=== PATIENT | female | born 1930 | race Caucasian/White ===

== ENCOUNTER → 2016-11-12 | Outpatient (CLI) | payer OTHER | LOC: FIMAGING 12:48 | PROVIDERS: ATTEND Physician Assistant | DX: M25.552 Pain in left hip (principal); M24.152 Other articular cartilage disorders, left hip; M24.852 Other specific joint derangements of left hip, not elsewhere classified; M16.12 Unilateral primary osteoarthritis, left hip ==

== ENCOUNTER → 2016-12-09 | Outpatient (CLI) | payer OTHER ==
[~2016-12-09] MED LIST: DEPO METHYLPREDNISOLONE 40 MG/ML SDV ONE; IOPAMIDOL (ISOVUE-300) 50 ML VIAL IV ONE; LIDOCAINE 1% 30 ML SDV ONE; NA BICARBONATE 50 MEQ/50 ML VIAL ONE; ROPIVACAINE HCL 150 MG/30 ML INJ ONE
== END ==
LOC: FIMAGING 13:00
PROVIDERS: ATTEND Orthopaedic Surgery
PROC: 3E0U3BZ Introduction of Anesthetic Agent into Joints, Percutaneous Approach (ICD-10-PCS; principal; 2016-12-09)
PROC: 3E0U33Z Introduction of Anti-inflammatory into Joints, Percutaneous Approach (ICD-10-PCS; principal; 2016-12-09)
DX: M16.12 Unilateral primary osteoarthritis, left hip (principal); M25.552 Pain in left hip
CPT/HCPCS: 20610; J1030; J2795; Q9967

== ENCOUNTER → 2017-01-22 | Outpatient (CLI) | payer OTHER | LOC: CIMAGING 15:06 | PROVIDERS: ATTEND Internal Medicine | DX: M79.604 Pain in right leg (principal) | CPT/HCPCS: 93971-PO ==

== ENCOUNTER → 2017-02-11 | Outpatient (CLI) | payer OTHER | LOC: BHFA 09:30 | PROVIDERS: ATTEND Internal Medicine Cardiovascular Disease | DX: Z01.818 Encounter for other preprocedural examination (principal) | CPT/HCPCS: 78452; 93017; A9500; J2785 ==

== ENCOUNTER 2017-02-23 13:42 | Emergency (ER) | payer OTHER ==
[2017-02-23 14:00] VITALS: TEMP 98
--- NOTE | 2017-02-23 14:10 | EDPHY ---
H & P Stated Complaint: sent from [place] for DVT treatment Time Seen by Provider: 02/23/17 13:49 HPI/ROS: Chief Complaint: DVT HPI: 86-year-old woman who is been having bilateral leg swelling for the past month secondary to diagnosis of phlebitis. Patient states she thinks that this is secondary to increasing hip arthritis. She was actually scheduled for a hip replacement tomorrow. Patient was sent for ultrasound of her bilateral lower extremities by her primary care physician, Dr. Daley. Ultrasounds today showed a DVT in the femoral vein of her left leg. She was sent here to check her CBC and PTT and initiate anticoagulation. She has a recent history of anemia likely secondary to increased ibuprofen use. Denies any chest pain or shortness of breath. No cough. No other complaints at this time. ROS: 10 point Review of Systems is negative except as noted in the HPI. PMH: Hypertension, anemia, osteoarthritis Medications: Hypertensive medication Allergies: No known drug allergies Social History: Remote smoking, occasional alcohol, no recreational drug use Family History: non-contributory Physical Exam: Gen: Awake, Alert, No Distress HEENT: Nose: no rhinorrhea Eyes: PERRLA, EOMI Mouth: Moist mucosa Neck: Supple, no JVD Chest: nontender, lungs clear to auscultation Heart: S1, S2 normal, no murmur Abd: Soft, non-tender, no guarding Back: no CVA tenderness, no midline tenderness Ext: Bilateral calf edema right greater than left, mild tenderness, mild erythema, non-tender Skin: no rash Neuro: CN II-XII intact, Sensation grossly intact, Strength 5/5 in bilateral upper and lower extremities - Personal History Current Tetanus Diphtheria and Acellular Pertussis (TDAP): Yes - Medical/Surgical History Hx Asthma: No Hx Chronic Respiratory Disease: No Hx Diabetes: No Hx Cardiac Disease: No Hx Renal Disease: No Hx Cirrhosis: No Hx Alcoholism: No Hx HIV/AIDS: No Hx Splenectomy or Spleen Trauma: No Other PMH: htn. basal cell ca. gallbladder , appy , tonsils - Social History Smoking Status: Never smoked Constitutional: Initial Vital Signs Temperature (C) 36.6 C 02/23/17 13:57 Heart Rate 68 02/23/17 13:57 Respiratory Rate 18 02/23/17 13:57 O2 Sat (%) 97 06/27/17 13:57 O2 Delivery Mode Room Air Allergies/Adverse Reactions: No Known Allergies Allergy (Unverified 04/20/14 23:20) Home Medications: Medication Instructions Recorded Diazoxide 04/20/14 Acyclovir 02/23/17 Enoxaparin [Lovenox 60 MG (*)] 70 mg SQ 1000,2200 #10 syr 02/23/17 Evista 02/23/17 Lisinopril 02/23/17 Warfarin Sodium [Coumadin 5MG (*)] 5 mg PO DAILY16 #30 tab 02/23/17 Departure - Departure Disposition: Home, Routine, Self-Care Clinical Impression: DVT (deep venous thrombosis) Condition: Good Instructions: Deep Venous Thrombosis (ED) Additional Instructions: Follow up with Dr. Daley tomorrow. Return emergency depart for any increasing pain, chest pain, shortness of breath , or any other concerns. Referrals: Maria Guadalupe Daley MD [Primary Care Provider] - As per Instructions Prescriptions: Enoxaparin [Lovenox 60 MG (*)] 70 mg SQ 1000,2200 #10 syr Warfarin Sodium [Coumadin 5MG (*)] 5 mg PO DAILY16 #30 tab
[2017-02-23 14:24] LABS: % IMMATURE GRANULYOCYTES 0.2 % (0.0-1.1); ABSOLUTE IMMATURE GRANULOCYTES 0.01 10^3/uL (0.00-0.10); ADD DIFF? NO; ADD MORPH? NO; ADD SCAN? NO; ATYPICAL LYMPHOCYTE FLAG 10 (0-99); FRAGMENT RBC FLAG 0 (0-99); HEMATOCRIT 31.6 % (38.0-47.0); HEMOGLOBIN 10.7 g/dL (12.6-16.3); LEFT SHIFT FLG 0 (0-99); LIPEMIA HEMOLYSIS FLAG 90 (0-99); MEAN CELL HEMOGLOBIN CONCENTR. 33.9 g/dL (32.4-36.7); MEAN CELL VOLUME 94.6 fL (81.5-99.8); PLATELET CLUMPS FLAG 0 (0-99); PLATELET COUNT 203 10^3/uL (150-400); RED BLOOD CELL COUNT 3.34 10^6/uL (4.18-5.33); RED CELL DISTRIBUTION WIDTH 13.2 % (11.5-15.2)
[2017-02-23 14:35] LABS: APTT 23.8 SEC (23.0-38.0); INR 1.04 (0.83-1.16); PROTIME(PATIENT) 13.3 SEC (12.0-15.0)
[2017-02-23] MEDS ORDERED: WARFARIN SODIUM 5 MG TAB PO ONE (14:41)
[2017-02-23] MEDS ORDERED: ENOXAPARIN 80 MG/0.8 ML SYR SC ONE (14:41)
[2017-02-23 15:28] VITALS: BP 132/70; PULSE 74; RESP 16
[2017-02-23 15:29] VITALS: O2SAT 98
== END 2017-02-23 15:28 | disposition home or self-care (01) ==
LOC: CED 13:42
DX: I82.412 Acute embolism and thrombosis of left femoral vein (principal); I10 Essential (primary) hypertension; Z79.01 Long term (current) use of anticoagulants; Z85.828 Personal history of other malignant neoplasm of skin
CPT/HCPCS: 93970; 99284; J1650; 85025-PO; 85610-PO; 85730-PO

== ENCOUNTER → 2017-02-23 | Outpatient (CLI) | payer OTHER | LOC: CIMAGING 12:31 | PROVIDERS: ATTEND Internal Medicine | DX: I82.4Z2 Acute embolism and thrombosis of unspecified deep veins of left distal lower extremity (principal) | CPT/HCPCS: 93970-PO ==

== ENCOUNTER 2017-03-13 08:42 | Inpatient (IN) | payer OTHER ==
[2017-03-13] MEDS ORDERED: NS 500 ML IV ONE (09:13)
--- NOTE | 2017-03-13 09:13 | EDPHY ---
H & P Time Seen by Provider: 03/13/17 08:56 HPI/ROS: HPI Right lower abdominal pain, right lower extremity swelling, shortness of breath , history of DVT. 86-year-old female by private vehicle with her . Patient has a left lower extremity DVT. She is currently on Coumadin for this. Labs INR of 3.6, yesterday March 12. She complains of intermittent pain in the right lower quadrant ongoing for 2-3 days, worse this morning. She also describes having shortness of breath starting this morning. She describes having chronic right lower extremity swelling ongoing for a month or 2. She thinks that this is getting worse. Her DVT was diagnosed in her left lower extremity. She has had 2 Doppler ultrasounds of the right lower extremity which have been negative. No fever. Denies chest pain. No cough. ROS: Constitutional: No fever, no chills. No weakness. Eyes: No discharge. No changes in vision. ENT: No sore throat. No nasal congestion or rhinorrhea. Respiratory: No cough. As above. Cardiac: No chest pain, no palpitations. Gastrointestinal: As above, no vomiting, no diarrhea. Genitourinary: No hematuria. No dysuria or increased frequency with urination. Musculoskeletal: No back pain. No neck pain. As above. Skin: No rashes. Neurological: No headache. No focal weakness or altered sensation. Past medical history: As above, basal cell carcinoma. Appendectomy and cholecystectomy years ago. Social history: Here with her . Nonsmoker. No alcohol. Physical Exam: General Appearance: Alert, no distress. This patient is responding to questions appropriately and in full sentences. This patient appears well- hydrated and well-nourished. Eyes: Pupils equal and round no pallor or injection. No lid edema, erythema or injection. Respiratory: There are no retractions, lungs are clear to auscultation with good air movement bilaterally. No tachypnea. Cardiovascular: Regular rate and rhythm. No murmur. Gastrointestinal: Abdomen is soft with vague and mild right lower quadrant tenderness on palpation, no masses, bowel sounds normal. No focal tenderness at McBurney's point. No Pan sign. Neurological: Motor sensory function is grossly intact. Cranial nerves are normal. Gait is normal. Skin: Warm and dry, no rashes. Musculoskeletal: Neck is supple and nontender. Extremities are asymmetric with diffuse swelling of the right lower extremity relative to the left lower extremity. Dorsalis pedis pulses are palpable bilaterally capillary refill is normal bilaterally in all toes. All joints range without pain or impingement. Psychiatric: No agitation. No depression. Database: EKG: EKG time is 9:18 a.m.; EKG shows a narrow complex normal sinus rhythm with a ventricular rate of 76. The PA, QRS, QT intervals are within normal limits. There are no ST-T wave changes indicative of ischemic or injury pattern. No evidence of right heart strain. Interpreted by me. Imaging: CT angio chest: Multiple bilateral cavitary nodules, all small, differential diagnosis includes metastasis of squamous cell carcinoma versus septic emboli. No pulmonary embolism seen. Results were discussed with staff radiologist Dr. Nito Valverde. CT abdomen with IV contrast: Retroperitoneal mass on the right side adjacent to the kidney. Secondary clot of the inferior vena cava into the bilateral iliac veins right-sided greater than left-sided. Likely metastatic cancer of the pancreas. Results were discussed with staff radiologist Dr. Nito Valverde. Procedures: Emergency department course: IV placed. Vital signs reviewed. She was placed on a electronic device monitor. EKG performed. I discussed her presentation with on-call radiologist Dr. Nito Valverde. Concern is for pulmonary embolism as well as possible right-sided iliac vein thrombosis. Plan will be to obtain CT angiogram of the chest as well as a contrast enhanced CT abdomen of the abdomen and pelvis. 10:30 a.m., discussed results of CT scans and blood work with the patient and her . Reviewed probable diagnosis of metastatic pancreatic cancer. Discussed admission. 10:35 a.m., discussed case with on-call hospitalist Dr. Tl Lynn. He accepts the patient for admission to [address] [place] [address]. Hematology-Oncology paged. 10:45 a.m., spoke with reporter anchor oncologist Dr. Donato. Case discussed in detail with him. He recommends switching the patient to heparin from Coumadin. He will see this patient after admission of the patient to the floor. 10:55 a.m., Dr. Tl Lynn, admitting physician, notified that Dr. Donato will consult. Dr. Tl Lynn will transition the patient to heparin from Coumadin. 11:00 a.m., patient's vital signs reviewed. She has been stable in the emergency department. Plan for admission and consultation with Hematology Oncology as well as Internal Medicine discussed. All of her questions were answered. Patient admitted in stable condition. Differential Diagnosis: The differential diagnosis on this patient includes but is not limited to, malignancy pulmonary embolism, pneumonia, acute coronary syndrome, right lower extremity DVT, right iliac vein DVT. This represents a partial list of diagnoses considered. These considerations are based on history, physical exam , past history, reassessment and diagnostic testing. Smoking Status: Never smoked Constitutional: Initial Vital Signs Temperature (C) 36.5 C 03/13/17 08:44 Heart Rate 96 03/13/17 08:44 Respiratory Rate 18 03/13/17 08:44 Blood Pressure 178/115 H 03/13/17 08:44 O2 Sat (%) 97 03/13/17 08:44 O2 Delivery Mode Room Air Allergies/Adverse Reactions: No Known Allergies Allergy (Verified 03/13/17 08:43) Home Medications: Medication Instructions Recorded Acetaminophen [Tylenol 325mg (*)] 325 - 650 mg PO BID 03/13/17 Diclofenac Sodium 1% [Voltaren Gel 1 milagros TP DAILY PRN 03/13/17 (*)] Herbals/Supplements -Info Only 1 ea PO DAILY 03/13/17 Lisinopril [Zestril 10 mg (*)] 10 mg PO DAILY 03/13/17 Multivitamins [Multivitamin (*)] 1 each PO DAILY 03/13/17 Omeprazole 40 mg PO DAILY 03/13/17 Warfarin Sodium [Coumadin 5MG (*)] 7.5 - 10 mg PO DAILY16 03/13/17 oxyCODONE IR [Oxycodone Ir (*)] 5 mg PO DAILY 03/13/17 Medical Decision Making - Diagnostics Imaging Results: Imaging Impressions Abdomen CT 03/13/17 09:13 Impression: 1. Large pancreatic mass worrisome for primary pancreatic neoplasm. There is contiguous extension to the posterior wall the stomach. Invasion of the splenic vein is also present, which is occluded. 2. Soft tissue infiltration of the retroperitoneum on the right at the level of the right renal vein worrisome for neoplastic etiology and metastatic disease. There is secondary thrombosis of the IVC, right renal vein, and common iliac veins bilaterally, right greater than left. 3. Intrahepatic and extrahepatic biliary ductal dilatation to the level of the ampulla. Results called to Dr. Blanca Hogue at 10:15 a.m. Chest/Thorax CTA 03/13/17 09:14 Impression: 1. Multiple cavitary lesions throughout both lungs, differential considerations including cavitary metastatic disease or septic emboli. 2. No CT evidence of acute pulmonary embolus. Please see subsequent abdominal CT for additional findings. Results called to Dr. Hogue at 10:15 AM. - Data Points Laboratory Results: Laboratory Results 03/13/17 09:05 03/13/17 09:05 03/13/17 03/13/17 03/13/17 09:05 09:05 09:05 WBC 9.18 10^3/uL 10^3/uL (3.80-9.50) RBC 3.55 10^6/uL L 10^6/uL (4.18-5.33) Hgb 11.2 g/dL L g/dL (12.6-16.3) Hct 33.4 % L % (38.0-47.0) MCV 94.1 fL fL (81.5-99.8) MCH 31.5 pg pg (27.9-34.1) MCHC 33.5 g/dL g/dL (32.4-36.7) RDW 12.9 % % (11.5-15.2) Plt Count 228 10^3/uL 10^3/uL (150-400) MPV 10.8 fL fL (8.7-11.7) Neut % (Auto) 65.2 % % (39.3-74.2) Lymph % (Auto) 22.4 % % (15.0-45.0) [place] % (Auto) 9.5 % % (4.5-13.0) Eos % (Auto) 1.6 % % (0.6-7.6) Baso % (Auto) 0.9 % % (0.3-1.7) Nucleat RBC Rel Count 0.0 % % (0.0-0.2) Absolute Neuts (auto) 5.98 10^3/uL 10^3/uL (1.70-6.50) Absolute Lymphs (auto) 2.06 10^3/uL 10^3/uL (1.00-3.00) Absolute Monos (auto) 0.87 10^3/uL H 10^3/uL (0.30-0.80) Absolute Eos (auto) 0.15 10^3/uL 10^3/uL (0.03-0.40) Absolute Basos (auto) 0.08 10^3/uL 10^3/uL (0.02-0.10) Absolute Nucleated RBC 0.00 10^3/uL 10^3/uL (0-0.01) Immature Gran % 0.4 % % (0.0-1.1) Immature Gran # 0.04 10^3/uL 10^3/uL (0.00-0.10) PT 29.7 SEC H SEC (12.0-15.0) INR 2.78 H (0.83-1.16) APTT 46.7 SEC H SEC (23.0-38.0) Sodium 140 mEq/L mEq/L (134-144) Potassium 3.8 mEq/L mEq/L (3.5-5.2) Chloride 102 mEq/L mEq/L (97-110) Carbon Dioxide 23 mEq/l mEq/l (22-31) Anion Gap 15 mEq/L mEq/L (8-16) BUN 16 mg/dL mg/dL (7-23) Creatinine 0.9 mg/dL mg/dL (0.6-1.0) Estimated GFR 60 Glucose 112 mg/dL H mg/dL (70-100) Calcium 9.6 mg/dL mg/dL (8.5-10.4) Troponin I < 0.012 ng/mL ng/mL (0-0.034) NT-Pro-B Natriuret Pep 142 pg/mL pg/mL (0-450) Medications Given: Discontinued Medications Sodium Chloride (Ns) 500 mls @ 0 mls/hr IV EDNOW ONE; Wide Open PRN Reason: Protocol Stop: 03/13/17 09:14 Last Admin: 03/13/17 09:28 Dose: 500 mls Departure - Departure Disposition: [facility] Inpatient Acute Clinical Impression: Lower abdominal pain, Dyspnea, History of deep venous thrombosis, Metastasis from pancreatic cancer, Inferior vena caval thrombosis, Iliac vein thrombosis
[2017-03-13] MEDS ORDERED: IOPAMIDOL (ISOVUE 370) 100 ML BTL IV ONE (09:22)
--- NOTE | 2017-03-13 09:22 | CPEKG ---
Heart Rate: 76 RR Interval: 789 P-R Interval: 188 QRSD Interval: 82 QT Interval: 376 QTC Interval: 423 P [place]: 35 QRS [place]: -3 T Wave [place]: 14 EKG Severity - NORMAL ECG - EKG Impression: SINUS RHYTHM Electronically Signed By: Blanca Lopez 13-Mar-2017 10:16:50
[2017-03-13 09:29] LABS: ANION GAP 15 mEq/L (8-16); CALCIUM 9.6 mg/dL (8.5-10.4); CARBON DIOXIDE 23 mEq/l (22-31); CHLORIDE 102 mEq/L (97-110); CREATININE 0.9 mg/dL (0.6-1.0); GLOMERULAR FILTRATION RATE 60; GLUCOSE 112 mg/dL (70-100); POTASSIUM 3.8 mEq/L (3.5-5.2); SODIUM 140 mEq/L (134-144)
[2017-03-13 09:30] LABS: % IMMATURE GRANULYOCYTES 0.4 % (0.0-1.1); ABSOLUTE IMMATURE GRANULOCYTES 0.04 10^3/uL (0.00-0.10); ADD DIFF? NO; ADD MORPH? NO; ADD SCAN? NO; ATYPICAL LYMPHOCYTE FLAG 30 (0-99); FRAGMENT RBC FLAG 0 (0-99); HEMATOCRIT 33.4 % (38.0-47.0); HEMOGLOBIN 11.2 g/dL (12.6-16.3); LEFT SHIFT FLG 0 (0-99); LIPEMIA HEMOLYSIS FLAG 80 (0-99); MEAN CELL HEMOGLOBIN 31.5 pg (27.9-34.1); MEAN CELL HEMOGLOBIN CONCENTR. 33.5 g/dL (32.4-36.7); MEAN CELL VOLUME 94.1 fL (81.5-99.8); MEAN PLATELET VOLUME 10.8 fL (8.7-11.7); PLATELET CLUMPS FLAG 0 (0-99); PLATELET COUNT 228 10^3/uL (150-400); RED BLOOD CELL COUNT 3.55 10^6/uL (4.18-5.33); RED CELL DISTRIBUTION WIDTH 12.9 % (11.5-15.2)
[2017-03-13 09:41] LABS: TROPONIN I < 0.012 ng/mL (0-0.034)
[2017-03-13 09:49] LABS: INR 2.78 (0.83-1.16); PROTIME(PATIENT) 29.7 SEC (12.0-15.0)
[2017-03-13 09:50] LABS: APTT 46.7 SEC (23.0-38.0)
[2017-03-13 13:25] LABS: ALBUMIN 4.3 g/dL (3.5-5.0); BILIRUBIN,TOTAL 0.5 mg/dL (0.1-1.4); BILIRUBIN-CONJUGATED 0.4 mg/dL (0.0-0.5); BILIRUBIN-UNCONJUGATED 0.1 mg/dL (0.0-1.1); TOTAL PROTEIN 7.5 g/dL (6.3-8.2)
[2017-03-13] MEDS ORDERED: ZOLPIDEM TARTRATE 5 MG TAB PO PRN (14:44)
[2017-03-13] MEDS ORDERED: ACETAMINOPHEN 325 MG TAB PO PRN (14:44)
[2017-03-13] MEDS ORDERED: DICLOFENAC SODIUM 1% 100 GM GEL TP PRN (14:47)
[2017-03-13] MEDS: oxyCODONE IR 5 MG TAB PO PRN ×2 (15:06→23:26)
--- NOTE | 2017-03-13 15:07 | PDGENHP ---
History and Physical History and Physical: HISTORY AND PHYSICAL CC: Ongoing bilateral leg edema HISTORY: This patient is been quite healthy other than arthritis developed swelling in both legs around 2 months ago. She had been seen here 3 weeks ago with ultrasound of the leg showing clot in the left but no clot in the right. She was started on Coumadin which she continues at this time. However the swelling in the right leg in particular has continued to get worse. She has had no bleeding or bruising. There is no trauma, immobilization, or significant travel. She has no prior history of thromboembolic disease no family history of thromboembolic disease. She has no history of tumors, immune diseases, fevers or weight loss. She also now notes that for the past week she has had some pain in the right side of her abdomen. This however is not affecting her appetite and she is having normal bowel function and normal bladder function. The patient came into the ER for evaluation of the swelling. In the ER a CT scan of the abdomen was done showing a pancreatic mass with thrombus in the IVC , renal and iliac veins. She is admitted to the hospital for further evaluation and care. Of notice CT scan of the chest was also done showing some cavitary lesions. ROS: A comprehensive 10 system review revealed no other significant findings. Notably again she has no weight loss. No fevers. PAST MEDICAL HISTORY: Osteoarthritis, and notably the patient was to have a hip replacement last month. This was canceled due to her clot disease. Cholecystectomy Appendectomy Hypertension Hyperlipidemia Osteoporosis Pneumonia FAMILY MEDICAL HISTORY: Breast cancer in her mother and 2 aunts Lung cancer in her father who was a smoker Diabetes Her brother has liver disease of uncertain nature No known history of pancreatic cancer in the family and no bile duct cancers SOCIAL HISTORY: Born in [place] she was raise there and then moving to [facility]. 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 She was from her after 20 years but continue to teach in [place]. After she retired she moved here to be near her son about 22 years ago. She is a former smoker having quit in 1984. She drinks 1 drink of alcohol with dinner a few nights a week but generally speaking more than a drink. She has no other significant chemical exposures. MEDICATIONS: The patients list has been reconciled by our clinical pharmacist in the EMR. I have reviewed the list and ordered appropriate medicines. PHYSICAL EXAMINATION: Vital Signs: Some hypertension otherwise normal without fever Examination: General: alert, oriented, good mentation, relaxed Skin: warm, dry, good color, no rash HEENT: normal Neck: no mass or jvd Resps: relaxed Lungs: clear breath sounds Heart: regular, no murmur Abdomen: soft, nondistended, but there is very mild tenderness in the lower epigastrium and the right flank but no costovertebral angle tenderness, +BS, no mass Upper Extremities: normal Lower Extremities: The right leg is quite edematous from the upper thigh down to the toes with normal color temperature and capillary refill in the skin. The skin is somewhat tender to light touch from the knee down. The left leg has mild edema below the knee and also good color. No Bleeding or bruising Neurologic: normal speech/language, normal rn charge, no focal weakness IV site: looks normal LABORATORY DATA: INR is at 2.7 Notably her liver enzymes and bilirubin are normal, and the rest of the chemistry and CBC is remarkable only for a mild normocytic anemia RADIOLOGY STUDIES: CT scan of the abdomen and pelvis is done in the ER as well as CT scan of the chest. I have reviewed all the images from the studies. I see several small cavitary lesions scattered in both lungs. There is no infiltrate or effusion there. In the abdomen there is a poorly defined pancreatic lesion this fairly large as well as some surrounding soft tissue abnormality. Bile duct is dilated. There does appear to be probable thrombus in the larger veins distal to the mass within the abdomen. I do not see any lesions in the liver. There is no sign of bowel obstruction 12 LEAD EKG: Done in the ER, my interpretation of the tracing: Normal EKG with sinus rhythm ASSESSMENT: -NEW DIAGNOSIS OF LARGE PANCREATIC MASS WITH LOCAL EXTENSION, ASSOCIATED WITH SEVERAL CAVITARY LUNG LESIONS, CONCERNING FOR MALIGNANCY -THROMBUS IN THE VENA CAVA AND ILIAC VEINS IS LIKELY RESPONSIBLE FOR THE ONGOING SWELLING IN HER RIGHT LEG; I SUSPECT THIS HAS A MECHANICAL CAUSE WITH COMPRESSION OF THE VENA CAVA -DVT IN THE LEFT LEG -THERAPEUTIC INR DEMONSTRATES THAT HER THROMBOEMBOLIC DISEASE IS NOT GOING TO BE RESPONSIVE TO ANTICOAGULANT, AGAIN SUGGESTING POSSIBLE MECHANICAL CAUSE This is presumably a primary pancreatic tumor, but the cavitary lung lesions are curious, and biopsy will be necessary to understand her illness and it's prognosis and treatment options. Symptomatically relieving her leg pain and swelling is the primary concern. PLANS: -admission to hospital -I have discussed with Dr Petersen and will review with interventional radiology -I believe she will need attempt at stenting IVC with cath directed lysis to treat the swelling of her legs and kidney -I believe she will best be approached by endoscopic ultrasound in terms of getting diagnostic biopsy We will need to get her INR down for these procedures, and will need to get the appropriate specialists involved. I think she is effectively IVC filtered so we can hold coumadin and start her on a heparin product or new oral med after the procedures. -pain management I have reviewed the patient's case in detail with Dr. PETERSEN I have reviewed the patient's past medical records as part of this assessment, including previous ER visit records and outpatient clinic records
[2017-03-13] MEDS ORDERED: PHYTONADIONE 2.5 MG/2.5 ML ORAL UDL PO ONE ×2 (17:19→19:00)
[2017-03-13] MEDS ORDERED: HEPARIN 10,000 UNIT/10 ML MDV IVP ONE (17:19)
[2017-03-13] MEDS ORDERED: GADOBUTROL 10 ML VIAL IVP ONE (17:26)
[2017-03-13] MEDS ORDERED: HEPARIN/DEXTROSE 500 ML IV SCH (17:30)
[2017-03-13 17:43] LABS: % IMMATURE GRANULYOCYTES 0.3 % (0.0-1.1); ABSOLUTE IMMATURE GRANULOCYTES 0.02 10^3/uL (0.00-0.10); ADD DIFF? NO; ADD MORPH? NO; ADD SCAN? NO; ATYPICAL LYMPHOCYTE FLAG 20 (0-99); FRAGMENT RBC FLAG 0 (0-99); HEMATOCRIT 30.7 % (38.0-47.0); HEMOGLOBIN 10.3 g/dL (12.6-16.3); LACTATE DEHYDROGENASE 456 IU/L (313-618); LEFT SHIFT FLG 0 (0-99); LIPEMIA HEMOLYSIS FLAG 80 (0-99); MEAN CELL HEMOGLOBIN 31.5 pg (27.9-34.1); MEAN CELL HEMOGLOBIN CONCENTR. 33.6 g/dL (32.4-36.7); MEAN CELL VOLUME 93.9 fL (81.5-99.8); MEAN PLATELET VOLUME 10.7 fL (8.7-11.7); PLATELET CLUMPS FLAG 0 (0-99); PLATELET COUNT 170 10^3/uL (150-400); RED BLOOD CELL COUNT 3.27 10^6/uL (4.18-5.33); RED CELL DISTRIBUTION WIDTH 13.1 % (11.5-15.2)
[2017-03-13 18:48] LABS: INR 2.9 (0.83-1.16); PROTIME(PATIENT) 30.7 SEC (12.0-15.0)
[2017-03-13 18:49] LABS: APTT 44.9 SEC (23.0-38.0)
--- NOTE | 2017-03-13 19:43 | GCON ---
[f rep st] CONSULTATION ONCOLOGY CONSULTATION REFERRING PHYSICIAN: Nestor Weathers MD REASON FOR CONSULTATION: Abdominal mass with lung lesions as well as IVC thrombosis. HISTORY OF PRESENT ILLNESS: The patient is a generally healthy 86-year-old woman whose primary problem has been osteoarthritis and was being worked up for a left hip replacement. She had noticed leg swelling, particularly right leg swelling, about 2 months ago. About 3 weeks ago, she had a Doppler ultrasound which showed no clot on the right, but she had a clot on the left involving the proximal left femoral vein and proximal left profunda femoris vein. She was started on [id number] heparin and warfarin, and she has been followed at the warfarin Clinic. However, she has had no improvement in her right leg since starting anticoagulation. It has continued to persistently get worse up until where she just felt like she could not take anymore and went to the emergency room. Along with the right leg, she also has pain in her hips as well as her right side. Her weight is probably up about 5 pounds over the last month or so. She has had a nonproductive cough but no other constitutional symptoms or GI complaints. She had a colonoscopy about 15 years ago, and she has significant diverticulosis. Her INR earlier this week was 3.6, so her warfarin has been on hold. Last dose was night. She came into the emergency room. A CT of the abdomen was performed that showed an abdominal mass and thrombosis in the IVC, renal and iliac veins. Chest CT also showed multiple cavitary lesions throughout both lungs. ALLERGIES: She has no known drug allergies. MEDICATIONS: Home medications include multivitamin, diclofenac gel, acetaminophen, warfarin, omeprazole, oxycodone, and lisinopril. CHRONIC ILLNESSES: Include osteoarthritis in hips and knees, hypertension, dyslipidemia, and osteoporosis. SURGICAL HISTORY: Includes cholecystectomy, appendectomy, tonsillectomy, and basal cell cancers removed. FAMILY HISTORY: Mother in her early 70s of breast cancer. Father at age 59 of lung cancer. She has 1 brother with diabetes and GENAO. She has been 4 times with 4 children. One son by committing suicide. She has 2 remaining living sons, 1 with Parkinson's, and 1 daughter. SOCIAL HISTORY: She is . 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 She recently moved from [place], [place] to the [place] area to be closer to her son. She was a previous smoker but quit in 1984. She has a drink with dinner occasionally. REVIEW OF SYSTEMS: A 10-point review of systems performed, pertinent positives per HPI, otherwise negative. PHYSICAL EXAMINATION: VITAL SIGNS: Temperature is 37, pulse is 93, blood pressure is 166/78. GENERAL: She is an elderly woman in no distress. HEENT: Sclerae nonicteric. Oral mucosa is unremarkable. LUNGS: Clear. CARDIAC: Regular with a 2/6 systolic murmur. ABDOMEN: Soft with a fullness in the midepigastric area, mildly tender, but no overt palpable mass or organomegaly. EXTREMITIES: Her right leg is much more swollen compared to the left with tenderness and pitting edema. NEUROLOGICAL: Grossly intact. SKIN: No clear abnormalities. LABS: CBC shows a mild anemia at 11.2 g/dL. INR today is 2.78. Chemistries and LFTs are unremarkable. Albumin is 4.3. Doppler ultrasound as per HPI. A CT of the chest showed multiple cavitary lesions throughout both lungs without a clear primary. CT of the abdomen and pelvis, which I reviewed with Dr. Valverde, showed a large mass possibly near the mid or tail of the pancreas but not clear. It seems to have contiguous extension to the posterior wall of the stomach. There is also invasion of the splenic vein which is occluded. There is soft tissue infiltration of the retroperitoneum on the right at the level of the right renal vein and secondary thrombosis of the IVC, right renal vein, and common iliac veins bilaterally, right greater than left. There is a little bit of intrahepatic and extrahepatic biliary duct dilatation, but no liver metastasis. Right kidney does not quite enhance when compared to the left, but no masses. CT pelvis showed no pelvic masses. IMPRESSION: 1. Progressive inferior vena cava thrombus despite anticoagulation, secondary to abdominal mass. 2. Abdominal mass with lung lesions. The etiology of the mass is not entirely clear right now. It could be arising from the pancreas, but it is not acting like a typical pancreatic cancer. There also seems to be some collaterals on CT scan, so it is possible this process has been ongoing for some time. It is remarkable she is not more symptomatic from a probable malignancy. We need to work on getting tissue, and perhaps the safest might be to try to do an upper endoscopy with ultrasound guidance. If that is nondiagnostic, then we can look for a CT-guided biopsy. Her main problem and what brought her to the emergency room is the swelling, which is due to the IVC clot. I will speak with Interventional Radiology to see if there might be a benefit from either a thrombectomy or directed thrombolysis, and then follow this up by stent to prevent further obstruction. Right now, I recommend holding warfarin and start intravenous heparin as she will probably need some procedures. I will also send some blood for tumor markers, although they will not be definitive. /[id number]/MODL MTDD
[2017-03-13] MEDS: HEPARIN/DEXTROSE 500 ML IV SCH (20:26)
[2017-03-13] MEDS: ACETAMINOPHEN 325 MG TAB PO SCH (23:20)
[2017-03-14 04:54] LABS: INR 1.7 (0.83-1.16)
[2017-03-14] MEDS: PANTOPRAZOLE SODIUM 40 MG TAB PO SCH (08:39)
[2017-03-14] MEDS: LISINOPRIL 10 MG TAB PO SCH (08:39)
[2017-03-14] MEDS: MULTIVITAMINS 1 EACH TAB PO SCH (08:39)
[2017-03-14] MEDS: ACETAMINOPHEN 325 MG TAB PO SCH ×2 (08:40→21:19)
[2017-03-14] MEDS: oxyCODONE IR 5 MG TAB PO PRN ×3 (08:43→21:20)
--- NOTE | 2017-03-14 11:30 | SOAPPROG ---
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 Warfarin on hold and INR better. Continue iv heparin. 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 Tumor markers and other labs not helpful at this time. Subjective: Right leg still bothering her with pain and swelling but no new changes. Objective: Vital Signs Temp Pulse Resp BP Pulse Ox 37.1 C 65 14 120/62 99 03/14/17 07:27 03/14/17 07:27 03/14/17 07:27 03/14/17 07:27 03/14/17 07:27 Laboratory Results 03/13/17 17:20 03/13/17 03/14/17 03/15/17 05:59 05:59 05:59 Intake Total 652 Balance 652 PT 20.0 SEC (12.0-15.0) H D 03/14/17 04:27 INR 1.70 (0.83-1.16) H 03/14/17 04:27 MRI of the Brain (Without and With Contrast) at 1739 hour Impression: 1. Mild age-related cerebral atrophy. 2. Mild microvascular ischemic disease. 3. No abnormal enhancing mass, acute infarct, hemorrhage, hydrocephalus, mass effect, or herniation. 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
--- NOTE | 2017-03-14 12:33 | HOSPPROG ---
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 IS LIKELY RESPONSIBLE FOR THE ONGOING SWELLING IN HER RIGHT LEG; I SUSPECT THIS HAS A MECHANICAL CAUSE WITH COMPRESSION OF THE VENA CAVA -DVT IN THE LEFT LEG -THERAPEUTIC INR DEMONSTRATES THAT HER THROMBOEMBOLIC DISEASE IS NOT GOING TO BE RESPONSIVE TO ANTICOAGULANT, AGAIN SUGGESTING POSSIBLE MECHANICAL CAUSE I met with the patient has been today along with Dr Lomas at which time reviewed her radiologic findings, differential diagnosis, hemodynamic abnormalities with her venous thromboses, and the proposed procedures of intravenous thrombolysis with catheter directed therapy, as well as attempt at stenting IVC across the obstructed area where her tumor is, and endoscopic ultrasound for diagnosis. We reviewed risks and benefits and answered questions for her about the procedures. At this time heard she is having her Coumadin reversed and she is on heparin. Will discuss her case with Dr. Waddell of Gastroenterology in terms of timing of possible endoscopic ultrasound for biopsy and make plans for when to proceed with attempt at doing with her thrombi and venous obstruction. SUBJECTIVE: Patient feels little different today, still with pain and swelling in the leg. She is not noticing any shortness of breath, fever symptoms, chest pain OBJECTIVE Vitals reviewed: stable without fever, blood pressure is much better today Exam: alert oriented skin warm dry color ok resps not labored lungs clear BSs heart regular abd soft nondistended nontender, bowel sounds present limbs warm, no edema iv site ok laboratory data: Hemoglobin slightly lower today at 10.5 INR down to 1.7 Objective: Vital Signs Temp Pulse Resp BP Pulse Ox 37 C 62 16 124/70 H 98 03/14/17 12:16 03/14/17 12:16 03/14/17 12:16 03/14/17 12:16 03/14/17 12:16 Laboratory Results 03/13/17 17:20 03/13/17 03/14/17 03/15/17 06:59 06:59 06:59 Intake Total 652 Balance 652 PT 20.0 SEC (12.0-15.0) H D 03/14/17 04:27 INR 1.70 (0.83-1.16) H 03/14/17 04:27 ICD10 Worksheet Patient Problems: Problems Problem Status Onset Dyspnea Acute History of deep venous thrombosis Acute Iliac vein thrombosis Acute Inferior vena caval thrombosis Acute Lower abdominal pain Acute Metastasis from pancreatic cancer Acute
[2017-03-14] MEDS: HEPARIN/DEXTROSE 500 ML IV SCH (16:17)
--- NOTE | 2017-03-14 19:57 | GCON ---
[f rep st] CONSULTATION INTERVENTIONAL RADIOLOGY CONSULTATION. DATE OF CONSULTATION: 03/14/2017 REFERRING PHYSICIAN: Khushbu Donato MD REASON FOR CONSULTATION: Iliocaval thrombosis. HISTORY OF PRESENT ILLNESS: Ms. Pace is an 86-year-old female with a history of osteoarthritis, who presented to the ED 1 day ago complaining of a 2- month history of lower extremity swelling. She was in her normal state of health until approximately 2 months ago, when she began to experience right greater than left lower extremity swelling. This gradually progressed, and she underwent lower extremity ultrasound in December which was negative. Her symptoms continued, and she underwent repeat lower extremity ultrasound at the end of January, which demonstrated a left lower extremity DVT. She was started on warfarin and has been taking warfarin as prescribed. Her symptoms have continued to worsen, however, and this prompted her visit to the ED yesterday. She complains of right greater than left lower extremity swelling and pain which have significantly reduced her mobility. She normally walks 2-3 miles/day , but can only walk to the end of the [place] in her current state. She currently rates her right lower extremity pain at 3/10 with oxycodone at rest, but it was nearly 10/10 up admission. Her left lower extremity symptoms are comparatively mild. She also complains of bilateral hip, knee, and foot pain, which is not new and has been attributed to osteoarthritis in the past. She also endorses an occasional cough and abdominal pain around the time of her visit to the ED. Her abomdinal pain has since resolved. She denies hemoptysis. On admission to the ED, she underwent CT scan of the chest, abdomen, and pelvis, which demonstrated cavitary lesions in the lungs, a pancreatic body mass involving the stomach, a right retroperitoneal mass involving or compressing the inferior vena cava at the level of the right renal vein, and extensive iliocaval thrombosis extending into the right greater than left common and external iliac veins. I was called by Dr. Donato to evaluate this patient to see if she would be a candidate for catheter-directed thrombolysis and possible inferior vena cava stent placement. ALLERGIES: No known drug allergies. MEDICATIONS: Multivitamin, diclofenac gel, warfarin, omeprazole, oxycodone, Tylenol and lisinopril. PAST MEDICAL HISTORY: Varicose veins, osteoarthritis, hypertension, dyslipidemia, and osteoporosis. PAST SURGICAL HISTORY: Prior left lower extremity superficial vein closure, cholecystectomy, appendectomy, tonsillectomy, and skin cancer removal FAMILY HISTORY: Mother of breast cancer. Father of lung cancer. SOCIAL HISTORY: Previous smoker but quit in 1984. Drinks socially. . REVIEW OF SYSTEMS: A 10-point review of systems negative unless noted in the HPI. PHYSICAL EXAMINATION: VITAL SIGNS: Blood pressure 120/62, heart rate 65, respiratory rate 14, oxygen saturation 99% in room air, temperature 37.1 degrees celsius. GENERAL: Well-nourished, well-developed, and in no acute distress. HEENT: Normocephalic. Sclerae anicteric. Oropharynx clear. NECK: Supple without lymphadenopathy. HEART: Regular rate and rhythm. LUNGS: Symmetric excursions, breathing unlabored. ABDOMEN: Nontender, nondistended, and soft. EXTREMITIES: Right greater than left lower extremity swelling and tenderness to palpation. Right leg wrapped in an jaclyn bandage. PULSES: 2+ dorsalis pedis pulses bilaterally. NEUROLOGIC: Gross nonfocal. LABORATORY DATA: White blood cell count 7.48, hemoglobin 10.3, hematocrit 30.7, platelet count 170. PT is 20, and INR is 1.7. Sodium 140, potassium 3.8, chloride 102, carbon dioxide 23, BUN 16, creatinine 0.9, estimated GFR 60, glucose 112, calcium 9.6. Total bilirubin 0.5, AST 18, ALT 26, alk phos 89. Lactate dehydrogenase 456. Total protein 7.5, albumin 4.3. IMAGING: CT chest, abdomen, and pelvis, dated 03/13/2017, was reviewed. There are greater than 20 cavitary lesions scattered throughout both lungs, measuring up to 18 mm in the right lower lobe on series 6 image 87. In the abdomen, there is a large pancreatic body mass, which appears to involve the posterior wall and lesser curvature of the stomach. There is a right retroperitoneal mass which invades or compresses the inferior vena cava and the right renal vein. The right kidney enhances less than the left, suggesting some degree of compromised function. There is also mass effect on the left renal vein. Filling defects in the infrarenal inferior vena cava, extending into the bilateral common iliac veins, right external iliac vein, right common femoral vein, and left proximal femoral vein. The left external iliac and common femoral veins are patent. These likely represent thrombi secondary to central IVC obstruction/compression. Alternatively, this could represent tumor thrombus ; however, the extent would be unusual. MRI brain dated 03/13/2017 was reviewed. No evidence of intracranial metastatic disease. ASSESSMENT/PLAN: Ms. Pace is an 86-year-old female with newly-diagnosed pancreatic mass, right retroperitoneal mass involving the IVC/right renal vein, cavitary lesions in the lungs, and extensive iliocaval thrombosis. Top differential consideration includes pancreatic cancer; however, pancreatic cancer usually doesn't cavitate. Her chief complaint is the right lower extremity swelling, which is likely due to caval obstruction and secondary right greater than left iliocaval thrombosis. The left lower extremity is only mildly symptomatic. I discussed catheter-directed thrombolysis and possible inferior vena cava stent placement at length with the patient and her son. I emphasized that the goal was palliation and an improvement in her right lower extremity symptoms. I went over the alternatives, potential benefits, and risks of the procedure including, but not limited to, pain, life-threatening hemorrhage, stroke, infection, damage to structures (in the leg, pelvis, abdomen , or chest), failure of the treatment, damage to the right and/or left kidney that could lead to renal failure and the need for dialysis. I explained that, given her age and the presence of cavitary lung lesions, she is a higher risk lysis candidate. I explained that this would be a multi-day procedure requiring an ICU admission. She would like to time to consider the procedure and declines to have any procedure done today, and would like time to process this new diagnosis. 1. Morning labs, including PT, INR, PTT, and fibrinogen. 2. Will discuss options with patient and her family again tomorrow morning. Possible lysis initiation tomorrow, 03/15/2017. 3. Patient will eventually need a tissue diagnosis, which may best be obtained by endoscopic ultrasound and biopsy. Recommend gastroenterology consultation to see if and when this can be done. 4. Patient will also eventually need an MRCP to evaluate a dilated common bile duct, which is may be due to reservoir effect, since the mass does not appear to extend into the head of the pancreas, and her total bilirubin is normal. 5. Continue heparin GTT for now. /[id number]/MODL MTDD
[2017-03-15] MEDS: oxyCODONE IR 5 MG TAB PO PRN ×4 (04:22→20:56)
[2017-03-15 04:53] LABS: INR 1.14 (0.83-1.16); PROTIME(PATIENT) 14.5 SEC (12.0-15.0)
[2017-03-15] MEDS: HEPARIN 10,000 UNIT/10 ML MDV IVP PRN (06:31)
[2017-03-15] MEDS: PANTOPRAZOLE SODIUM 40 MG TAB PO SCH (09:29)
[2017-03-15] MEDS: LISINOPRIL 10 MG TAB PO SCH (09:29)
[2017-03-15] MEDS: ACETAMINOPHEN 325 MG TAB PO SCH ×2 (09:30→21:17)
[2017-03-15] MEDS: MULTIVITAMINS 1 EACH TAB PO SCH (09:33)
--- NOTE | 2017-03-15 10:18 | SOAPPROG ---
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 Warfarin on hold and INR better. Continue iv heparin. * Abd mass with probable lung mets: EUS today, discussed with Dr Waddell Subjective: Right leg still bothering her with pain and swelling but no new complaints 03/15/17 10:17 Objective: Vital Signs Temp Pulse Resp BP Pulse Ox 98.6 F 80 16 124/60 H 90 L 03/15/17 08:00 03/15/17 08:00 03/15/17 08:00 03/15/17 08:00 03/15/17 08:00 Laboratory Results 03/15/17 04:00 03/14/17 03/15/17 03/16/17 05:59 05:59 05:59 Intake Total 652 1021 Balance 652 1021 PT 14.5 SEC (12.0-15.0) 03/15/17 04:00 INR 1.14 (0.83-1.16) 03/15/17 04:00 Physical Exam - Physical Exam General Appearance: alert, no apparent distress Respiratory: lungs clear Cardiac/Chest: regular rate, rhythm Abdomen: normal bowel sounds, non-tender ICD10 Worksheet Patient Problems: Problems Problem Status Onset Dyspnea Acute History of deep venous thrombosis Acute Iliac vein thrombosis Acute Inferior vena caval thrombosis Acute Lower abdominal pain Acute Metastasis from pancreatic cancer Acute
--- NOTE | 2017-03-15 11:17 | SOAPPROG ---
SOAP Progress Note Assessment/Plan: Assessment: 86-year-old female with newly-diagnosed pancreatic mass, right retroperitoneal mass involving the IVC/right renal vein, cavitary lesions in the lungs, and extensive iliocaval thrombosis. Her symptoms have not improved. She has had time to consider thrombolysis and possible stent placement and would like to proceed. I believe this is appropriate given the severity of her symptoms and her severely limited mobility. I explained that I would try to avoid stent placement, if possible. The patient would like to have a anesthesiology present and a preliminary tissue diagnosis, if possible. This has been coordinated with Dr. Donnie Waddell with gastroenterology. Once again, we discussed the the alternatives, potential benefits, and risks of the procedure, including the risk of stent migration if a stent is needed, sepsis or worsening of the cavitary lesions if these represent septic emboli ( unlikely given that she appears clinically well and is without evidence of infection), and worsening pulmonary metastatic disease. Plan: 1. EUS and small gauge biopsy this afternoon with Dr. Waddell, followed by catheter placement for thrombolysis with anesthesiology. D/w Dr. Donnie Waddell. 03/15/17 11:00 03/15/17 11:19 03/15/17 13:49 Subjective: Slept well. RLE greater than LLE swelling and tenderness unchanged. Can only walk from bed to bathroom and back, with assistance. No other complaints today. Objective: Vital Signs Temp Pulse Resp BP Pulse Ox 37 C 80 16 124/60 H 90 L 03/15/17 08:00 03/15/17 08:00 03/15/17 08:00 03/15/17 08:00 03/15/17 08:00 Laboratory Results 03/15/17 04:00 03/14/17 03/15/17 03/16/17 05:59 05:59 05:59 Intake Total 652 1021 Balance 652 1021 PT 14.5 SEC (12.0-15.0) 03/15/17 04:00 INR 1.14 (0.83-1.16) 03/15/17 04:00 Gen: WDWN, NAD Heart: RRR Lungs: Normal resp. effort Abd: NTND, soft MSK: Rt leg wrapped in jaclyn bandage and elevated. RLE > LLE swelling, moderately tender. Neuro: Gross nonfocal ICD10 Worksheet Patient Problems: Problems Problem Status Onset Dyspnea Acute History of deep venous thrombosis Acute Iliac vein thrombosis Acute Inferior vena caval thrombosis Acute Lower abdominal pain Acute Metastasis from pancreatic cancer Acute
[2017-03-15] MEDS ORDERED: LR 1,000 ML IV ONE (11:42)
--- NOTE | 2017-03-15 12:37 | PDANEPAE ---
ANE History of Present Illness Pancreatic mass and DVT ANE Past Medical History - Cardiovascular History Hx Hypertension: Yes - Pulmonary History Hx Oxygen in Use at Home: No Hx Sleep Apnea: No Sleep Apnea Screening Result - Last Documented: Negative - Endocrine History Hx Diabetes: No - Chronic Pain History Chronic Pain: Yes ANE Patient History - Allergies Allergies/Adverse Reactions: No Known Allergies Allergy (Verified 03/13/17 08:43) - Home Medications Home medications: home medication list seen and reviewed Home Medications: Acetaminophen [Tylenol 325mg (*)] 325 - 650 mg PO BID 03/13/17 [Last Taken Unknown] Diclofenac Sodium 1% [Voltaren Gel (*)] 1 milagros TP DAILY PRN 03/13/17 [Last Taken Unknown] Herbals/Supplements -Info Only 1 ea PO DAILY 03/13/17 [Last Taken Unknown] Lisinopril [Zestril 10 mg (*)] 10 mg PO DAILY 03/13/17 [Last Taken 03/12/17] Multivitamins [Multivitamin (*)] 1 each PO DAILY 03/13/17 [Last Taken 03/12/17] Omeprazole 40 mg PO DAILY 03/13/17 [Last Taken 03/13/17] Warfarin Sodium [Coumadin 5MG (*)] 7.5 - 10 mg PO DAILY16 03/13/17 [Last Taken Unknown] oxyCODONE IR [Oxycodone Ir (*)] 5 mg PO DAILY 03/13/17 [Last Taken 03/13/17] - NPO status NPO Since - Liquids (Date): 03/15/17 NPO Since - Liquids (Time): 09:30 NPO Since - Solids (Date): 03/14/17 NPO Since - Solids (Time): 18:00 - Smoking Hx Smoking Status: Never smoked ANE Labs/Vital Signs - Labs Result Diagrams: 03/15/17 04:00 03/13/17 09:05 - Vital Signs Blood Pressure: 124/54 Heart Rate: 89 Respiratory Rate: 16 O2 Sat (%): 88 Height: 160.02 cm Weight: 68.39 kg ANE Physical Exam - Airway Neck exam: FROM Mallampati Score: Class 2 Mouth exam: normal dental/mouth exam - Pulmonary Pulmonary: no respiratory distress - Cardiovascular Cardiovascular: regular rate and rhythym - ASA Status ASA Status: III ANE Anesthesia Plan Anesthesia Plan: general endotracheal anesthesia, MAC
[2017-03-15] MEDS ORDERED: PROPOFOL 200 MG/20 ML VIAL ONE ×2 (12:43)
[2017-03-15] MEDS ORDERED: PROPOFOL/EMULSION 500 MG/50 ML BOTTLE IV ONE (13:05)
--- NOTE | 2017-03-15 13:30 | POSTOPPROG ---
Post Op Note Date of Operation: 03/15/17 Surgeon: Donnie Waddell Anesthesia: IV Sedation Pre-op Diagnosis: abnormal imaging Post-op Diagnosis: Panc Mass- adeno on preliminary Indication: abnl imaging Procedure: EGD. EUS with FNA Findings: + panc mass Inf/Abcess present in the surg proc area at time of surgery?: No EBL: Minimal Specimen(s): FNA of panc mass in body
[2017-03-15] MEDS ORDERED: fentaNYL 100 MCG/2 ML INJ ONE (13:35)
[2017-03-15] MEDS ORDERED: SUGAMMADEX SODIUM 200 MG/2 ML VIAL IVP ONE (14:20)
[2017-03-15] MEDS ORDERED: ROCURONIUM 50 MG/5 ML VIAL ONE (14:20)
[2017-03-15] MEDS ORDERED: ONDANSETRON 4 MG/2 ML VIAL ONE (14:20)
[2017-03-15] MEDS ORDERED: ALTEPLASE IVP SCH (15:00)
[2017-03-15] MEDS ORDERED: NS IVP SCH (15:00)
--- NOTE | 2017-03-15 15:14 | HOSPPROG ---
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 Dr. Waddell will see the patient and plans to perform endoscopic ultrasound of her mass today if possible. We will then hopefully be able to proceed with attempted thrombolysis and stenting to get her circulation improved in the abdomen legs. She will require transfer to intensive care unit for management of the for percutaneous thrombolysis. Beyond that she will need anticoagulation initially with heparin and then transitioned to an oral medicines. Other treatment plans will primarily depend on her biopsy results but otherwise indicated by her clinical progress. SUBJECTIVE: Little change in symptoms today, with somewhat less pain and swelling in the right leg. She is not noticing any shortness of breath, fever symptoms, chest pain OBJECTIVE Vitals reviewed: stable without fever, blood pressure is much better today Exam: alert oriented skin warm dry color ok resps not labored lungs clear BSs heart regular abd soft nondistended nontender, bowel sounds present limbs warm, there is still remarkable edema in the right thigh but the edema below the knee on the right is less than on previous days. Left leg still with mild edema unchanged iv site ok Laboratory data: INR down to 1.4 Objective: Vital Signs Temp Pulse Resp BP Pulse Ox 37.3 C 89 16 124/54 H 88 L 03/15/17 11:59 03/15/17 12:37 03/15/17 12:37 03/15/17 12:37 03/15/17 12:37 Laboratory Results 03/15/17 04:00 03/14/17 03/15/17 03/16/17 06:59 06:59 06:59 Intake Total 652 1021 Balance 652 1021 PT 14.5 SEC (12.0-15.0) 03/15/17 04:00 INR 1.14 (0.83-1.16) 03/15/17 04:00 - Time Spent With Patient Time Spent with Patient: greater than 35 minutes Time Spent with Patient: Greater than 35 minutes spent on this patients care, greater than 50% of time spent counseling, educating, and coordinating care regarding the above mentioned plan. ICD10 Worksheet Patient Problems: Problems Problem Status Onset Dyspnea Acute History of deep venous thrombosis Acute Iliac vein thrombosis Acute Inferior vena caval thrombosis Acute Lower abdominal pain Acute Metastasis from pancreatic cancer Acute
[2017-03-15] MEDS ORDERED: IOPAMIDOL (ISOVUE-300) 100 ML BTL ONE (15:16)
--- NOTE | 2017-03-15 15:26 | POSTOPPROG ---
Post Op Note Date of Operation: 03/15/17 Surgeon: Randy Lomas Anesthesia: Other (Specify) (GA) Pre-op Diagnosis: Iliocaval thrombosis, LLE DVT Post-op Diagnosis: Same Indication: RLE > LLE pain and swelling Procedure: BLE venography and iliocaval venography, initation of thrombolysis Findings: See report Inf/Abcess present in the surg proc area at time of surgery?: No EBL: Minimal Complications: No immediate.
[2017-03-15] MEDS ORDERED: PROMETHAZINE HCL 25 MG/ML INJ IVP PRN (15:27)
[2017-03-15] MEDS ORDERED: LORazepam 1 MG TAB PO PRN (15:27)
[2017-03-15] MEDS ORDERED: HEPARIN/DEXTROSE 500 ML IV SCH (15:30)
[2017-03-15] MEDS ORDERED: NS IVP ONE (15:30)
[2017-03-15] MEDS ORDERED: ALTEPLASE IVP ONE (15:30)
[2017-03-15] MEDS ORDERED: NALOXONE HCL 0.4 MG/ML INJ IVP PRN (15:51)
--- NOTE | 2017-03-15 15:53 | POSTANESTH ---
Post Anesthetic Evaluation Cardiovascular Status: Normal, Stable Respiratory Status: Normal, Stable Level of Consciousness/Mental Status: Can Participate in Eval Pain Control: Adequate, Prn Tx Ordered Nausea/Vomiting Control: Adequate, Prn Tx Ordered Complications Possibly Related to Anesthesia: None Noted
--- NOTE | 2017-03-15 16:49 | GCON ---
[f rep st] CONSULTATION PULMONARY/CRITICAL CARE CONSULTATION DATE OF CONSULTATION: 03/15/2017 REFERRING PHYSICIAN: Nestor Weathers MD REASON FOR REFERRAL: Evaluation and management of cavitary nodules. HISTORY: The patient is an 86-year-old woman who was in her usual state of good health when about 2 months ago she started to develop some leg swelling. An ultrasound was done 3 weeks ago which show ed a clot in the left leg, but not in the right. She was started on Lovenox and Coumadin. However, the swelling in the right leg continued to get worse. This was then accompanied by some pain in he r right abdomen. She presented to the emergency department where a CT scan showed an abdominal mass with extension to the IVC and thrombus/occlusion of the IVC and common iliac veins as well as the r ight renal vein. A CT scan of the chest showed multiple thick walled cavities. The patient denies any chest pain or cough. 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 She just returned just now from catheter placement for tPA infusion/thrombolysis. She was intubated for the lysis procedure at the patient's request, as she was prone for an extend ed period of time. She currently denies any pain, but does feel somewhat cold. There were no compl ications apparent at the end of the procedure. A final report from the procedure is pending. PAST MEDICAL HISTORY: 1. Osteoarthritis with hip replacement that was planned, but currently on hold. 2. Hypertension. 3. Hyperlipidemia. 4. Osteoporosis. MEDICATIONS: Voltaren, Coumadin, oxycodone, Zestril. ALLERGIES: None. SOCIAL HISTORY: This patient is a former smoker, stopped in 1984. She drinks alcohol occasionally. She was born in [place] and lived in [place] prior to moving here. There is no history of tuberc ulosis in the patient or significant exposures. FAMILY HISTORY: Unremarkable. REVIEW OF SYSTEMS: Unobtainable, as the patient is still somewhat sedated from her procedure. PHYSICAL EXAMINATION: GENERAL: The patient is somnolent, but arousable. VITAL SIGNS: Her blood p ressure is 150/66 with a heart rate of 78. She is afebrile. Oxygen saturations are 100% on 8 L. H EENT: Normocephalic and atraumatic. No icterus. NECK: No JVD. Trachea is midline. CHEST: Tiffanie r to auscultation. CARDIAC: Regular rate and rhythm without murmur. ABDOMEN: Soft, nontender. B owel sounds are present. EXTREMITIES: She has 1+ edema bilaterally. She has good pulses distally. Her feet are warm. NEURO: The patient is somnolent, but arousable. She is able to move all extr emities. LABORATORY AND X-RAY DATA: Hemoglobin is 10.3, a white blood count is 4.5. Chemistry group was nor mal. A CT scan of the chest shows greater than 10 thick-walled cavities scattered throughout both l ungs. Images reviewed. A CT scan of the abdomen shows a mass in the area of the pancreas, extendin g to the stomach and back to the IVC, with thrombosis of the IVC. Images reviewed. ASSESSMENT: 1. Multiple cavitary lesions. The differential diagnosis is broad, but with a large abdominal mass and preliminary biopsy demonstrating adenocarcinoma, these likely represent metastases. She has no t had any symptoms to suggest granulomatous infection such as TB or septic emboli or significant fev ers or other embolic stigmata to suggest septic emboli. 2. Extensive bilateral deep venous thrombosis. These appear to be related to direct invasion of th e tumor into the IVC. She is currently undergoing thrombolysis after failing Coumadin therapy. RECOMMENDATIONS: 1. No evaluation currently for the cavitary lesions. They can be followed radiographically. If sh e develops worsening symptoms, then cultures and possibly a biopsy could be obtained. 2. Continue tPA infusion. /[id number]/MODL
[2017-03-15 17:14] LABS: ANION GAP 11 mEq/L (8-16); APTT 28.5 SEC (23.0-38.0); CALCIUM 8.7 mg/dL (8.5-10.4); CARBON DIOXIDE 23 mEq/l (22-31); CHLORIDE 104 mEq/L (97-110); CREATININE 0.9 mg/dL (0.6-1.0); GLOMERULAR FILTRATION RATE 60; GLUCOSE 96 mg/dL (70-100); POTASSIUM 3.7 mEq/L (3.5-5.2); SODIUM 138 mEq/L (134-144)
[2017-03-15 17:55] LABS: MAGNESIUM 1.9 mg/dL (1.6-2.3)
[2017-03-15] MEDS: NS IV SCH ×2 (20:06→20:07)
[2017-03-15] MEDS: ALTEPLASE IV SCH ×2 (20:06→20:07)
[2017-03-15] MEDS: ONDANSETRON 4 MG/2 ML VIAL IVP PRN (20:26)
[2017-03-16 04:40] LABS: % IMMATURE GRANULYOCYTES 0.3 % (0.0-1.1); ABSOLUTE IMMATURE GRANULOCYTES 0.02 10^3/uL (0.00-0.10); ADD DIFF? NO; ADD MORPH? NO; ADD SCAN? NO; ATYPICAL LYMPHOCYTE FLAG 0 (0-99); FRAGMENT RBC FLAG 0 (0-99); HEMATOCRIT 27.6 % (38.0-47.0); HEMOGLOBIN 9.2 g/dL (12.6-16.3); LEFT SHIFT FLG 0 (0-99); LIPEMIA HEMOLYSIS FLAG 80 (0-99); MEAN CELL HEMOGLOBIN 31.5 pg (27.9-34.1); MEAN CELL HEMOGLOBIN CONCENTR. 33.3 g/dL (32.4-36.7); MEAN CELL VOLUME 94.5 fL (81.5-99.8); MEAN PLATELET VOLUME 10.7 fL (8.7-11.7); PLATELET CLUMPS FLAG 0 (0-99); PLATELET COUNT 145 10^3/uL (150-400); RED BLOOD CELL COUNT 2.92 10^6/uL (4.18-5.33); RED CELL DISTRIBUTION WIDTH 12.9 % (11.5-15.2)
[2017-03-16 05:07] LABS: INR 1.46 (0.83-1.16); PROTIME(PATIENT) 17.7 SEC (12.0-15.0)
[2017-03-16 05:08] LABS: APTT 50.1 SEC (23.0-38.0)
[2017-03-16] MEDS: ACETAMINOPHEN 325 MG TAB PO SCH ×2 (08:21→22:20)
[2017-03-16] MEDS: LISINOPRIL 10 MG TAB PO SCH (08:22)
[2017-03-16] MEDS: PANTOPRAZOLE SODIUM 40 MG TAB PO SCH (08:22)
[2017-03-16] MEDS: MULTIVITAMINS 1 EACH TAB PO SCH (09:17)
[2017-03-16 10:16] LABS: APTT 38.3 SEC (23.0-38.0)
[2017-03-16] MEDS: oxyCODONE IR 5 MG TAB PO PRN ×3 (10:34→23:28)
--- NOTE | 2017-03-16 10:36 | GCON ---
[f rep st] CONSULTATION DATE OF CONSULTATION: 03/15/2017 REFERRING PHYSICIAN: Nestor Weathers MD REASON FOR CONSULTATION: Abnormal imaging. CHIEF COMPLAINT: Leg swelling/abnormal imaging. HISTORY OF PRESENT ILLNESS: The patient is an 86-year-old female who presented to [facility] on 03/13/2017 with a complaint of ongoing bilateral leg edema. The patient, who has no significant past medical history, was doing well until approximately 3 weeks ago she started to notice leg swelling in her left leg. Ultrasound was performed and she was noted to have a clot in her left leg. She was started on Coumadin but started to experience an increase in swelling in the right leg which did not show any evidence of clot. She also had some complaint of pain in the right abdomen which is fleeting. She denies any exacerbating or alleviating factors to her symptoms. She came to [facility] for further evaluation. She had a CT scan of the abdomen/ chest performed which showed a possible mass in the pancreatic body as well as cavitary lesions in the lungs. She was also noted to have a thrombus in the IVC , renal and iliac veins. I am being asked by Dr. Weathers to evaluate the patient regarding her abnormal imaging. PAST MEDICAL HISTORY: 1. Hypertension. 2. Hyperlipidemia. 3. Osteoporosis. 4. History of pneumonia. 5. Osteoarthritis. 6. Blood clot. PAST SURGICAL HISTORY: 1. Cholecystectomy. 2. Appendectomy. MEDICATIONS: Lisinopril 10 mg a day, multivitamin, omeprazole 40 mg a day, warfarin, oxycodone, diclofenac, acetaminophen. ALLERGIES: NKDA. FAMILY HISTORY: Mom, breast cancer. SOCIAL HISTORY: No significant alcohol or tobacco use. REVIEW OF SYSTEMS: A 14 point comprehensive review of systems was asked. Pertinent positives and negatives per HPI. PHYSICAL EXAMINATION: VITAL SIGNS: Blood pressure 124/54. Respiratory rate 16. Temperature 37.3. GENERAL: Awake, alert, oriented x3. No distress. HEENT: Anicteric sclerae. Moist mucosa. NECK: No JVD. CARDIOVASCULAR: Regular rate and rhythm. Positive S1 and S2. No murmurs, rubs, or gallops appreciated. LUNGS: Clear to auscultation bilaterally. No wheezes, rales, or rhonchi. ABDOMEN: Soft , nontender, nondistended. Positive bowel sounds. No guarding, no rebound. EXTREMITIES: Right leg is quite edematous. Left leg edema. NEUROLOGIC: 2 through 12 grossly intact. PSYCH: Normal affect. MUSCULOSKELETAL: No obvious joint deformities. DIAGNOSTIC STUDIES: Blood work: AST 18, ALT 26, alk phos 89. INR on 03/15/[address] scan of the abdomen 03/13/2017: Large pancreatic mass in the body. Extrahepatic and intrahepatic biliary dilation. CT scan of the chest and 03/13/2017: Multiple cavitary lesions throughout the lungs. ASSESSMENT AND PLAN: 1. Abnormal imaging- with possible pancreatic mass as well as cavitary lesions in the lungs which may represent metastatic disease. At this time, I recommend to proceed with endoscopic ultrasound with possible FNA of this lesion for diagnosis. The risks, benefits, and alternatives of the procedure were discussed in great detail with the patient. The risk of infection, bleeding, perforation, pancreatitis, and sedation were discussed. Due to her anticoagulation use for her blood clots, she is at an increased risk of bleeding. Will plan on stopping her heparin drip approximately 1 hour before the procedure. The increased risk of bleeding was discussed specifically with her. 2. Osteoarthritis. 3. Hypertension. 4. Dyslipidemia. 5. Osteoporosis. Thank you very much for this consultation. /[id number]/MODL MTDD
--- NOTE | 2017-03-16 13:48 | SOAPPROG ---
SOAP Progress Note Assessment/Plan: Assessment:E&M for abd mass and IVC clot * IVC clot secondary to mass: undergoing lytic therapy * Abd mass with probable lung mets: EUS shows adeno ca, c/w pancreatic primary. Discussed with pt and dx, prognosis, option of palliative chemo,I would recommend stenting ivc, discussed with IR. Palliative care conference discussed Subjective: Right leg still bothering her with pain and swelling but no new complaints 03/15/17 10:17 03/16/17 13:38 Objective: Vital Signs Temp Pulse Resp BP Pulse Ox 98.6 F 73 14 123/65 H 100 03/16/17 11:59 03/16/17 11:59 03/16/17 11:59 03/16/17 11:59 03/16/17 11:59 Laboratory Results 03/16/17 04:25 03/15/17 16:59 03/15/17 03/16/17 03/17/17 05:59 05:59 05:59 Intake Total 1021 1774.4 Output Total 550 Balance 1021 1224.4 PT 17.7 SEC (12.0-15.0) H 03/16/17 04:25 INR 1.46 (0.83-1.16) H 03/16/17 04:25 ICD10 Worksheet Patient Problems: Problems Problem Status Onset Dyspnea Acute History of deep venous thrombosis Acute Iliac vein thrombosis Acute Inferior vena caval thrombosis Acute Lower abdominal pain Acute Metastasis from pancreatic cancer Acute
--- NOTE | 2017-03-16 13:56 | PDINTPN ---
Woodworking Craftsman Progress Note Assessment/Plan: Assessment: Severe PAD: Pain improved. Anemia: Hgb stable Lung Ca: s/p RUL resection. On chemo, WBC low yesterday, higher today Plan: Aorto-bifem later today. Follow Hgb, WBC. 03/16/17 13:56 Subjective: Feels OK, pain a bit better. Objective: Vital Signs Temp Pulse Resp BP Pulse Ox 37.0 C 73 14 123/65 H 100 03/16/17 11:59 03/16/17 11:59 03/16/17 11:59 03/16/17 11:59 03/16/17 11:59 Laboratory Results 03/16/17 04:25 03/15/17 16:59 03/15/17 03/16/17 03/17/17 05:59 05:59 05:59 Intake Total 1021 1774.4 Output Total 550 Balance 1021 1224.4 PT 17.7 SEC (12.0-15.0) H 03/16/17 04:25 INR 1.46 (0.83-1.16) H 03/16/17 04:25 Physical Exam - Physical Exam General Appearance: alert, no apparent distress EENT: normal ENT inspection Neck: normal inspection Respiratory: lungs clear, normal breath sounds Cardiac/Chest: regular rate, rhythm, No edema Peripheral Pulses: 0: dorsalis-pedis (R), dorsalis-pedis (L) Abdomen: normal bowel sounds, non-tender Skin: normal color, warm/dry Extremities: non-tender Neuro/Psych: alert, normal mood/affect, oriented x 3 ICD10 Worksheet Patient Problems: Problems Problem Status Onset Dyspnea Acute History of deep venous thrombosis Acute Iliac vein thrombosis Acute Inferior vena caval thrombosis Acute Lower abdominal pain Acute Metastasis from pancreatic cancer Acute
--- NOTE | 2017-03-16 14:11 | PDINTPN ---
Cryptologic Support Specialist Progress Note Assessment/Plan: Assessment: Bilateral DVTs: with IVC occlusion due to pancreatic Ca: Symptoms improved after 1 day of bilateral tPA infusion. Pancreatic Ca: Extensive. Anemia: Hgb down a bit today. No other signs of significant active bleeding. Multiple cavitary lesions: Likely mets. No symptoms. Plan: Back to IR suite today, probably remove tPA catheters and try to place IVC stent. Follow Hgb, CXR. 03/16/17 14:08 03/16/17 14:12 Subjective: Feels OK,, pain in right leg improved, but still feels quite swollen. Appetite fairly good. Objective: Vital Signs Temp Pulse Resp BP Pulse Ox 37.0 C 76 16 124/42 H 99 03/16/17 11:59 03/16/17 13:00 03/16/17 13:00 03/16/17 13:00 03/16/17 13:00 Laboratory Results 03/16/17 04:25 03/15/17 16:59 03/15/17 03/16/17 03/17/17 05:59 05:59 05:59 Intake Total 1021 1774.4 Output Total 550 Balance 1021 1224.4 PT 17.7 SEC (12.0-15.0) H 03/16/17 04:25 INR 1.46 (0.83-1.16) H 03/16/17 04:25 Physical Exam - Physical Exam General Appearance: alert, no apparent distress EENT: normal ENT inspection Neck: normal inspection Respiratory: lungs clear, normal breath sounds Cardiac/Chest: regular rate, rhythm, edema (1+ BLE) Abdomen: normal bowel sounds, non-tender Skin: normal color, warm/dry Extremities: normal inspection Neuro/Psych: alert, normal mood/affect, oriented x 3 ICD10 Worksheet Patient Problems: Problems Problem Status Onset Dyspnea Acute History of deep venous thrombosis Acute Iliac vein thrombosis Acute Inferior vena caval thrombosis Acute Lower abdominal pain Acute Metastasis from pancreatic cancer Acute
--- NOTE | 2017-03-16 15:04 | SOAPPROG ---
BRYAN Progress Note Assessment/Plan: Assessment: Plan: 03/16/17 14:54 A/P 1. Abnormal imaging- with pancreatic mass with vessel involvement as well as possible pulmonary lesions. S/p EUS with FNA with preliminary report + for adenocarcinoma. No apparent complications of FNA. GI will sign off. Thank you for the consultation! Subjective: cc: Follow up abnormal imaging. No abdominal pain. Objective: Vital Signs Temp Pulse Resp BP Pulse Ox 37.0 C 72 10 L 125/52 H 100 03/16/17 11:59 03/16/17 14:00 03/16/17 14:00 03/16/17 14:00 03/16/17 14:00 Laboratory Results 03/16/17 04:25 03/15/17 16:59 03/15/17 03/16/17 03/17/17 05:59 05:59 05:59 Intake Total 1021 1774.4 Output Total 550 Balance 1021 1224.4 PT 17.7 SEC (12.0-15.0) H 03/16/17 04:25 INR 1.46 (0.83-1.16) H 03/16/17 04:25 Physical Exam - Physical Exam General Appearance: alert, no apparent distress EENT: No scleral icterus (R), No scleral icterus (L) Respiratory: lungs clear, normal breath sounds Cardiac/Chest: regular rate, rhythm Abdomen: normal bowel sounds, non-tender, soft, No distended Neuro/Psych: normal mood/affect, oriented x 3, No abnormal computer engineering professor II-XII ICD10 Worksheet Patient Problems: Problems Problem Status Onset Lower abdominal pain Acute Dyspnea Acute History of deep venous thrombosis Acute Metastasis from pancreatic cancer Acute Inferior vena caval thrombosis Acute Iliac vein thrombosis Acute
[2017-03-16] MEDS ORDERED: PROPOFOL 200 MG/20 ML VIAL ONE (15:07)
--- NOTE | 2017-03-16 15:24 | SOAPPROG ---
SOAP Progress Note Assessment/Plan: Assessment: 86-year-old female with newly-diagnosed pancreatic mass, right retroperitoneal mass involving the IVC/right renal vein, cavitary lesions in the lungs, and extensive iliocaval thrombosis s/p initiation of catheter-directed thrombolysis POD #1. Right leg pain decreased. Swelling unchanged. Fibrinogen 100 this am, so tPA stopped. Re-draw 4 hour later also <100, so tPA kept off. I discussed yesterday's procedure with the patient and her son Joaquin and reviewed the images with them. I explained that, based on the CT and the yesterday's venogram, if I stent, it's likely I'll have to stent across at least the right renal vein and possibly the left. I explained that there's a risk of thrombosing the renal veins as a result, which could lead to eventual renal failure. I will use an uncovered stent to reduce this risk. They verbalized understanding and would like to proceed. Dr. Kern also discussed the preliminary diagnosis and rationale for stent placement. Plan: 1. F/u lysis today with possible stent placement with anesthesia support. 03/15/17 11:00 03/15/17 11:19 03/15/17 13:49 03/16/17 15:15 Subjective: RLE pain improved. Swelling unchanged. No other complaints. Oozed slightly from left pop access overnight. tPA since just before 6 am per nurse. Objective: Vital Signs Temp Pulse Resp BP Pulse Ox 37.0 C 72 10 L 125/52 H 100 03/16/17 11:59 03/16/17 14:00 03/16/17 14:00 03/16/17 14:00 03/16/17 14:00 Laboratory Results 03/16/17 04:25 03/15/17 16:59 03/15/17 03/16/17 03/17/17 05:59 05:59 05:59 Intake Total 1021 1774.4 Output Total 550 Balance 1021 1224.4 PT 17.7 SEC (12.0-15.0) H 03/16/17 04:25 INR 1.46 (0.83-1.16) H 03/16/17 04:25 Gen: WDWN, NAD, resting comfortably in bed HEENT: Normocephalic, anicteric Heart: RRR Lungs: Normal effort Abd: NTND, soft MSK: Moderate right, mild left LLE edema, 2+ pitting around the right ankle, small blood beneath dressing behind left pop Neuro: Gross nonfocal ICD10 Worksheet Patient Problems: Problems Problem Status Onset Dyspnea Acute History of deep venous thrombosis Acute Iliac vein thrombosis Acute Inferior vena caval thrombosis Acute Lower abdominal pain Acute Metastasis from pancreatic cancer Acute
[2017-03-16] MEDS ORDERED: ceFAZolin 1 GM VIAL ONE ×2 (15:33)
[2017-03-16] MEDS ORDERED: HEPARIN 10,000 UNIT/10 ML MDV ONE (15:37)
--- NOTE | 2017-03-16 15:37 | GPN ---
[f rep st] PROCEDURE NOTE DATE OF PROCEDURE: 03/15/2017 PROCEDURE PERFORMED: Esophagogastroduodenoscopy. Endoscopic ultrasound with fine needle aspirate. INDICATION: The patient is an 86-year-old female who presents for evaluation of abnormal imaging. She had a recent CT scan of the abdomen and chest which revealed a pancreatic mass as well as multiple cavitary lesions in the lungs. She presents for further evaluation and possible tissue acquisition. CONSENT: Risks, benefits, and alternatives of the procedure were discussed in great detail with the patient. Risks of infection, bleeding, perforation, pancreatitis, and sedation were discussed. All questions answered. Informed consent was obtained. MEDICATIONS: Propofol. Please see Anesthesiology record for details. ESTIMATED BLOOD LOSS: Insignificant. ESOPHAGOGASTROSCOPY EXAMINATION: The Olympus upper endoscope was inserted in the mouth and advanced to the esophagus. The proximal, mid, and distal esophagus were normal in appearance. The stomach was entered and closely examined, including retroflexed views of the angularis, cardia, and fundus. No mass lesion was noted. The duodenal bulb and second portion of the duodenum were normal in appearance. ENDOSCOPIC ULTRASOUND EXAMINATION: The Olympus linear echoendoscope was inserted in the mouth, advanced to the second portion the duodenum. The pancreas was carefully examined from the uncinate process to the tail, where the spleen was seen. In the body of the pancreas, a 5 x 3.7 cm hypoechoic mass with indistinct margin was noted. The mass invaded the splenic vein. Doppler was used to rule out any intervening vessels. One transgastric pass was made with a [employer] 25 gauge needle into the lesion. Cytology was present and preliminary report is positive for adenocarcinoma. The common bile duct was seen and was without stone, stricture, or stenosis. The common bile duct was dilated to 8 mm in the distal duct. The pancreatic duct was seen merging with it with no mass lesions seen. No liver lesions were noted. No obvious periportal, peripancreatic, or perigastric nodes were appreciated. IMPRESSION: Large pancreatic mass- body. Splenic vein invasion. Fine needle aspiration performed and preliminary report is positive for adenocarcinoma. RECOMMENDATIONS: 1. Follow up on FNA results. 2. Follow up with Oncology. /[id number]/MODL MTDD
[2017-03-16] MEDS ORDERED: ROCURONIUM 50 MG/5 ML VIAL ONE (16:07)
[2017-03-16] MEDS ORDERED: IOPAMIDOL (ISOVUE-300) 100 ML BTL ONE (16:54)
--- NOTE | 2017-03-16 16:55 | HOSPPROG ---
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 IS LIKELY RESPONSIBLE FOR THE ONGOING SWELLING IN HER RIGHT LEG; I SUSPECT THIS HAS A MECHANICAL CAUSE WITH COMPRESSION OF THE VENA CAVA -DVT IN THE LEFT LEG PROCEDURES THIS ADMIT: -CT ABDOMEN PELVIS -ENDOSCOPIC US WITH BIOPSY OF PANCREATIC MASS -CATHETER DIRECTED THROMBOLYSIS OF IVC, ILEAC, AND RENAL VEIN THROMBOSES, WITH PENDING ATTEMPT FOR STENT PLACEMENT I reviewed the patient's case today with doctor Cesilia. She is currently in the IR lab getting angiojet tx's and he is preparing to place first stent. No complications Will require heparin drip after that. Her pathology still pending but I have been told preliminary is adenoca. SUBJECTIVE: again little change in symptom OBJECTIVE Vitals reviewed: stable without fever, blood pressure is much better today Exam: alert oriented no signs of bleeding from thrombolysis skin warm dry color ok resps not labored lungs clear BSs heart regular abd soft nondistended nontender, bowel sounds present limbs warm, again with less edema than at admission iv site ok Objective: Vital Signs Temp Pulse Resp BP Pulse Ox 37.0 C 72 10 L 125/52 H 100 03/16/17 11:59 03/16/17 14:00 03/16/17 14:00 03/16/17 14:00 03/16/17 14:00 Laboratory Results 03/16/17 04:25 03/15/17 16:59 03/15/17 03/16/17 03/17/17 06:59 06:59 06:59 Intake Total 1021 1774.4 Output Total 550 Balance 1021 1224.4 PT 17.7 SEC (12.0-15.0) H 03/16/17 04:25 INR 1.46 (0.83-1.16) H 03/16/17 04:25 ICD10 Worksheet Patient Problems: Problems Problem Status Onset Dyspnea Acute History of deep venous thrombosis Acute Iliac vein thrombosis Acute Inferior vena caval thrombosis Acute Lower abdominal pain Acute Metastasis from pancreatic cancer Acute
[2017-03-16] MEDS ORDERED: ONDANSETRON 4 MG/2 ML VIAL ONE (18:08)
--- NOTE | 2017-03-16 18:58 | POSTOPPROG ---
Post Op Note Date of Operation: 03/27/17 Surgeon: Randy Lomas Anesthesia: GET(General Endotracheal) Pre-op Diagnosis: Iliocaval thrombosis and LLE DVT 2/2 tumor invasion/ compression of IVC Post-op Diagnosis: Same Indication: RLE > LLE swelling and pain Procedure: Lysis check, BLE venography, cavogram, thrombectomy, venoplasty Findings: See report Inf/Abcess present in the surg proc area at time of surgery?: No
[2017-03-16 20:49] LABS: APTT 71.6 SEC (23.0-38.0)
[2017-03-16] MEDS: HEPARIN/DEXTROSE 500 ML IV SCH (22:00)
[2017-03-16] MEDS: HEPARIN 10,000 UNIT/10 ML MDV IVP PRN (22:18)
[2017-03-17] MEDS: ONDANSETRON 4 MG/2 ML VIAL IVP PRN (01:57)
[2017-03-17 02:58] LABS: % IMMATURE GRANULYOCYTES 0.1 % (0.0-1.1); ABSOLUTE IMMATURE GRANULOCYTES 0.01 10^3/uL (0.00-0.10); ADD DIFF? NO; ADD MORPH? NO; ADD SCAN? NO; ATYPICAL LYMPHOCYTE FLAG 10 (0-99); FRAGMENT RBC FLAG 0 (0-99); HEMATOCRIT 26.3 % (38.0-47.0); HEMOGLOBIN 8.6 g/dL (12.6-16.3); LEFT SHIFT FLG 0 (0-99); LIPEMIA HEMOLYSIS FLAG 80 (0-99); MEAN CELL HEMOGLOBIN 31.5 pg (27.9-34.1); MEAN CELL HEMOGLOBIN CONCENTR. 32.7 g/dL (32.4-36.7); MEAN CELL VOLUME 96.3 fL (81.5-99.8); MEAN PLATELET VOLUME 11.2 fL (8.7-11.7); PLATELET CLUMPS FLAG 10 (0-99); PLATELET COUNT 141 10^3/uL (150-400); RED BLOOD CELL COUNT 2.73 10^6/uL (4.18-5.33); RED CELL DISTRIBUTION WIDTH 13.1 % (11.5-15.2)
[2017-03-17] MEDS: ACETAMINOPHEN 325 MG TAB PO SCH ×2 (09:29→22:35)
[2017-03-17] MEDS: LISINOPRIL 10 MG TAB PO SCH (09:30)
[2017-03-17] MEDS: PANTOPRAZOLE SODIUM 40 MG TAB PO SCH (09:30)
[2017-03-17] MEDS: MULTIVITAMINS 1 EACH TAB PO SCH (09:30)
[2017-03-17] MEDS: oxyCODONE IR 5 MG TAB PO PRN ×2 (11:15→19:38)
--- NOTE | 2017-03-17 12:06 | SOAPPROG ---
SOAP Progress Note Assessment/Plan: Assessment:E&M for abd mass and IVC clot * IVC clot secondary to mass: largely cleared without stent, plan is to transition to lovenox which I would recommend as a watermelon inspector therapy * Abd mass with probable lung mets: EUS shows adeno ca, c/w pancreatic primary. Discussed with pt and dx, prognosis, option of palliative chemo versus hospice care, will arrange for palliative care conference Subjective: Legs better 03/15/17 10:17 03/16/17 13:38 03/17/17 12:03 Objective: Vital Signs Temp Pulse Resp BP Pulse Ox 98.6 F 77 12 132/47 H 100 03/17/17 08:00 03/17/17 10:00 03/17/17 10:00 03/17/17 10:00 03/17/17 10:00 Laboratory Results 03/17/17 02:40 03/15/17 16:59 03/16/17 03/17/17 03/18/17 05:59 05:59 05:59 Intake Total 1774.4 1098 Output Total 550 325 Balance 1224.4 773 PT 17.7 SEC (12.0-15.0) H 03/16/17 04:25 INR 1.46 (0.83-1.16) H 03/16/17 04:25 ICD10 Worksheet Patient Problems: Problems Problem Status Onset Dyspnea Acute History of deep venous thrombosis Acute Iliac vein thrombosis Acute Inferior vena caval thrombosis Acute Lower abdominal pain Acute Metastasis from pancreatic cancer Acute
[2017-03-17 15:46] VITALS: RESP 16
--- NOTE | 2017-03-17 15:47 | HOSPPROG ---
Hospitalist Progress Note Assessment/Plan: assessment: 86-year-old female presents with inferior vena cava clot and deep venous thrombosis in the setting of new diagnosis pancreatic adenocarcinoma Plan: 1. Inferior vena cava thrombus. Most likely hypercoagulable state in the setting of adenocarcinoma, resulting in lower extremity edema -status post thrombectomy, lysis, angioplasty by Interventional Radiology -will require systemic anticoagulation moving forward -counseled patient and her son regarding systemic anticoagulation options, the patient is electing for subcutaneous Lovenox dosed once daily, 1.5 milligrams/ kilogram, to be administered by her son -transition from heparin drip this afternoon to Lovenox with teaching at 5:00 p.m. -will continue to be followed up at [facility] 2. Deep venous thrombosis. Present on admission, left lower extremity, secondary to extension from IVC thrombus -systemic anticoagulation as above -lower extremity edema is improving, pain is improving as well 3. metastatic adenocarcinoma. New diagnosis, discussed with patient and her son , they requesting palliative consultation tomorrow a.m. when the patient's other son is available to attend - discussed with palliative care, scheduled for 10:00 a.m. tomorrow - contributing to a degree of generalized weakness, patient is working with physical therapy, case management is arranging home care services 4. Anemia. Most likely secondary to chronic inflammatory disease in the setting of malignancy, no evidence of acute blood loss Diet. Regular as tolerated Prophylaxis. High risk patient, currently on heparin drip Code. Full code at present Disposition. Anticipated discharge is 03/18/2017, following palliative care consultation and successful transition from heparin to Lovenox without bleeding in the setting of recent lytic administration. Subjective: Patient reports she is hungry and is eating well Objective: Vital Signs Temp Pulse Resp BP Pulse Ox 36.9 C 85 20 135/44 H 93 03/17/17 12:37 03/17/17 12:37 03/17/17 12:37 03/17/17 12:37 03/17/17 12:37 Laboratory Results 03/17/17 02:40 03/16/17 03/17/17 03/18/17 05:59 05:59 05:59 Intake Total 1774.4 1098 Output Total 550 325 Balance 1224.4 773 PT 17.7 SEC (12.0-15.0) H 03/16/17 04:25 INR 1.46 (0.83-1.16) H 03/16/17 04:25 - Time Spent With Patient Time Spent with Patient: greater than 35 minutes Time Spent with Patient: Greater than 35 minutes spent on this patients care, greater than 50% of time spent counseling, educating, and coordinating care regarding the above mentioned plan. - Physical Exam Constitutional: no apparent distress, appears nourished, not in pain Cardiovascular: regular rate and rhythym, no murmur, rub, or gallop, edema ( right lower extremity with trace edema), No irregularly irregular Respiratory: no respiratory distress, no rales or rhonchi, clear to auscultation Gastrointestinal: normoactive bowel sounds, soft, non-tender abdomen, no palpable masses, distension Neurologic: AAOx3, sensation intact bilaterally Psychiatric: interacting appropriately, not anxious, not encephalopathic, thought process linear ICD10 Worksheet Patient Problems: Problems Problem Status Onset Lower abdominal pain Acute Dyspnea Acute History of deep venous thrombosis Acute Metastasis from pancreatic cancer Acute Inferior vena caval thrombosis Acute Iliac vein thrombosis Acute
[2017-03-17] MEDS ORDERED: ENOXAPARIN 100 MG/ML SYR SC SCH (17:00)
[2017-03-17 18:32] LABS: APTT 40.5 SEC (23.0-38.0)
[2017-03-17] MEDS ORDERED: ENOXAPARIN 80 MG/0.8 ML SYR SC SCH (21:00)
[2017-03-17 21:51] LABS: ALANINE AMINOTRANSFERASE 49 IU/L (9-52); ALBUMIN 2.8 g/dL (3.5-5.0); ALKALINE PHOSPHATASE 187 IU/L (38-126); ANION GAP 11 mEq/L (8-16); ASPARTATE AMINOTRANSFERASE 46 IU/L (14-46); BILIRUBIN,TOTAL 0.4 mg/dL (0.1-1.4); CALCIUM 8.4 mg/dL (8.5-10.4); CARBON DIOXIDE 23 mEq/l (22-31); CHLORIDE 106 mEq/L (97-110); CREATININE 0.9 mg/dL (0.6-1.0); GLOMERULAR FILTRATION RATE 60; GLUCOSE 132 mg/dL (70-100); POTASSIUM 3.4 mEq/L (3.5-5.2); SODIUM 140 mEq/L (134-144); TOTAL PROTEIN 5.2 g/dL (6.3-8.2)
--- NOTE | 2017-03-17 22:09 | SOAPPROG ---
SOAP Progress Note Assessment/Plan: Assessment: 86-year-old female with newly-diagnosed pancreatic mass, right retroperitoneal mass involving the IVC/right renal vein, cavitary lesions in the lungs, and extensive iliocaval thrombosis s/p catheter-directed thrombolysis, thrombectomy and venoplasty POD #2. Mild improvement in symptoms this am is promising. Plan: 1. Mobilization, as tolerated, with the help of PT/OT. 2. Compression stockings. 3. Transition to oral anticoagulation prior to discharge. Will need long-term. Consider Eliquis for ease of dosing. 03/15/17 11:00 03/15/17 11:19 03/15/17 13:49 03/16/17 15:15 03/17/17 22:04 Subjective: Leg pain and welling slightly decreased per Pt. Abd was sore last night but now resolved. Sore behind knees at access sites. Otherwise, no complaints. Objective: Vital Signs Temp Pulse Resp BP Pulse Ox 36.9 C 81 16 139/58 H 93 03/17/17 15:43 03/17/17 15:43 03/17/17 15:43 03/17/17 15:43 03/17/17 16:30 Laboratory Results 03/17/17 02:40 03/17/17 15:15 03/16/17 03/17/17 03/18/17 05:59 05:59 05:59 Intake Total 1774.4 1098 850 Output Total 550 325 Balance 1224.4 773 850 PT 17.7 SEC (12.0-15.0) H 03/16/17 04:25 INR 1.46 (0.83-1.16) H 03/16/17 04:25 Gen: NAD HEENT: Anicteric, OP clear Heart: RRR Lungs: Normal effort Abd: NTND, soft MSK: Moderate swelling and pitting edema, right greater than left, right popliteal dressing CDI, left popliteal dressing with small dried blood, no hematoma ICD10 Worksheet Patient Problems: Problems Problem Status Onset Dyspnea Acute History of deep venous thrombosis Acute Iliac vein thrombosis Acute Inferior vena caval thrombosis Acute Lower abdominal pain Acute Metastasis from pancreatic cancer Acute
[2017-03-18 05:24] LABS: HEMATOCRIT 23.3 % (38.0-47.0); HEMOGLOBIN 7.8 g/dL (12.6-16.3)
[2017-03-18 05:48] LABS: ALANINE AMINOTRANSFERASE 39 IU/L (9-52); ALBUMIN 2.4 g/dL (3.5-5.0); ALKALINE PHOSPHATASE 145 IU/L (38-126); ANION GAP 6 mEq/L (8-16); ASPARTATE AMINOTRANSFERASE 22 IU/L (14-46); BILIRUBIN,TOTAL 0.3 mg/dL (0.1-1.4); CALCIUM 8.4 mg/dL (8.5-10.4); CARBON DIOXIDE 24 mEq/l (22-31); CHLORIDE 109 mEq/L (97-110); CREATININE 0.9 mg/dL (0.6-1.0); GLOMERULAR FILTRATION RATE 60; GLUCOSE 103 mg/dL (70-100); POTASSIUM 3.7 mEq/L (3.5-5.2); SODIUM 139 mEq/L (134-144); TOTAL PROTEIN 4.8 g/dL (6.3-8.2)
[2017-03-18] MEDS: oxyCODONE IR 5 MG TAB PO PRN ×2 (08:53→19:40)
[2017-03-18] MEDS: LISINOPRIL 10 MG TAB PO SCH (08:54)
[2017-03-18] MEDS: MULTIVITAMINS 1 EACH TAB PO SCH (08:55)
[2017-03-18] MEDS: PANTOPRAZOLE SODIUM 40 MG TAB PO SCH (08:56)
[2017-03-18] MEDS: ACETAMINOPHEN 325 MG TAB PO SCH ×2 (11:28→19:49)
--- NOTE | 2017-03-18 14:33 | PDPCPN ---
Palliative Care Progress Note Assessment/Plan: Referring provider: Dr Pappas Reason for consult: Complex medical decision making Symptom control HPI: Lila Pace is a 86 yo female with PMH HTN, HLD, and osteoarthritis in work up for replacement but on hold due to developing blood clot in her leg admitted to the hospital with increasing lower leg edema. Found to have pancreatic adenocarcinoma with possible leg mets as well as thrombus in the IVC , renal and iliac arteries s/p stent and thrombectomy. Oncology has met with patient and future options still to be discussed in detail as outpatient. Palliative care consulted for complex medical decision making. Met with Lila and her familu (2 sons, DIL, and daughter over the phone) at the bedside this morning. Lila described that she lives by herself in a split level home for the past 22 years here in [place]. Her son lives close by but she has been very independent prior. Her DIL stated "the day after having a kyphoplasty she was driving herself to [place]". She likes to go out to eat with friends as well as go to the [employer]. She likes to be very independent which is important to her. She walks frequently and is frustrated with being so weak here in the hospital. She is interested in learning more about her oncology options with the focus of maintaining her quality of life. We talked about future discussions and options including hospice care. Also discussed the care she will be getting at home with [facility] as well as future care of hospice and potentially needing private duty caregivers. She has filled out a MDPOA as well as living will. Went over code status and discussed CPR, MOST form given to fill out. She needs to have more discussions with her family about her wishes but would not want to be dependent permanently. Assessment: Physical: - Pain: occasional abdominal pain as well as chronic OA of both hips -oxy 10mg PO Q4hr PRN - tylenol scheduled BID - poor appetite - encourage general diet - constipation - bowel protocol while on opiates with senna and colace Emotional/psychological: doing well. Has a lot of support from family Advanced Care Planning: Is patient decisional?: Yes Code Status: Full- given MOST form MD BENÍTEZ: Son is MDPOA. Plan: Home with [facility]. information given on palliative care and hospice for future use. Will follow up with [facility] for possible oncology interventions. Wants to maintain her good quality of life 07/20/17 14:33 Subjective: I'm feeling ok Objective: Social History: . 3 children all involved. 1 son lives local, the others in [place] and [place]. 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 Medication list reviewed ROS: General: fatigue, weakness ENT: negative Resp: negative GI: abdominal pain : negative MS: negative Skin:negative Neuro: negative Psych: negative Functional assessment: PPS: 60% Functional status: needs some assistance with ADls Vital Signs Temp Pulse Resp BP Pulse Ox 36.7 C 81 16 146/62 H 96 03/18/17 08:00 03/18/17 08:00 03/18/17 08:00 03/18/17 08:54 03/18/17 08:00 Laboratory Results 03/18/17 04:25 03/18/17 04:25 03/17/17 03/18/17 03/19/17 05:59 05:59 05:59 Intake Total 1098 1150 Output Total 325 Balance 773 1150 PT 17.7 SEC (12.0-15.0) H 03/16/17 04:25 INR 1.46 (0.83-1.16) H 03/16/17 04:25 Physical Exam - Physical Exam General Appearance: alert, no apparent distress Respiratory: No respiratory distress, No accessory muscle use Skin: normal color, warm/dry Extremities: No pedal edema Neuro/Psych: alert, oriented x 3 ICD10 Worksheet Patient Problems: Problems Problem Status Onset Dyspnea Acute History of deep venous thrombosis Acute Iliac vein thrombosis Acute Inferior vena caval thrombosis Acute Lower abdominal pain Acute Metastasis from pancreatic cancer Acute Palliative care encounter Acute - ICD10 Problem Qualifiers (1) Palliative care encounter
--- NOTE | 2017-03-18 16:08 | SOAPPROG ---
SOAP Progress Note Assessment/Plan: Assessment:E&M for abd mass and IVC clot * IVC clot secondary to mass: largely cleared without stent, plan is to transition to Eliquis * Abd mass with probable lung mets: EUS shows adeno ca, c/w pancreatic primary. Discussed with pt and dx, prognosis, option of palliative chemo versus hospice care, 30 minute conversation today. would be a bit pessimistic as to her chances of meaningful palliation Subjective: Legs better 03/15/17 10:17 03/16/17 13:38 03/17/17 12:03 03/18/17 16:02 Objective: Vital Signs Temp Pulse Resp BP Pulse Ox 98.0 F 81 16 146/62 H 96 03/18/17 08:00 03/18/17 08:00 03/18/17 08:00 03/18/17 08:54 03/18/17 08:00 Laboratory Results 03/18/17 04:25 03/18/17 04:25 03/17/17 03/18/17 03/19/17 05:59 05:59 05:59 Intake Total 1098 1150 Output Total 325 Balance 773 1150 PT 17.7 SEC (12.0-15.0) H 03/16/17 04:25 INR 1.46 (0.83-1.16) H 03/16/17 04:25 ICD10 Worksheet Patient Problems: Problems Problem Status Onset Dyspnea Acute History of deep venous thrombosis Acute Iliac vein thrombosis Acute Inferior vena caval thrombosis Acute Lower abdominal pain Acute Metastasis from pancreatic cancer Acute Palliative care encounter Acute
[2017-03-18] MEDS: HYDROCORTISONE 1% CREAM TP SCH ×2 (16:25→20:06)
[2017-03-18] MEDS ORDERED: RIVAROXABAN 15 MG TAB PO SCH (18:00)
--- NOTE | 2017-03-18 18:03 | PDIAF ---
- Diagnosis Diagnosis: DVT, IVC clot, Pancreatic Adenocarcinoma Code Status: Full Code - Medication Management Discharge Medications: Medications to Continue on Transfer Acetaminophen [Tylenol 325mg (*)] 325 - 650 mg PO BID 03/13/17 [Last Taken Unknown] Diclofenac Sodium 1% [Voltaren Gel (*)] 1 milagros TP DAILY PRN 03/13/17 [Last Taken Unknown] Herbals/Supplements -Info Only 1 ea PO DAILY 03/13/17 [Last Taken Unknown] Lisinopril [Zestril 10 mg (*)] 10 mg PO DAILY 03/13/17 [Last Taken 03/12/17] Multivitamins [Multivitamin (*)] 1 each PO DAILY 03/13/17 [Last Taken 03/12/17] Omeprazole 40 mg PO DAILY 03/13/17 [Last Taken 03/13/17] Hydrocortisone 1% [Hydrocortisone 1% cream (*)] 1 milagros TP BID cream 03/18/17 [ Last Taken Unknown] Rivaroxaban [Xarelto 15mg (*)] 15 mg PO BIDMEAL tab 03/18/17 [Last Taken Unknown] oxyCODONE IR [Oxycodone Ir (*)] 2.5 - 10 mg PO Q4 PRN #30 tab 03/18/17 [Last Taken Unknown] 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 PICC Care - Routine: N/A - Orders Services needed: Home Care, Registered Nurse, Physical Therapy Home Care Face to Face: I certify that this patient was under my care and that I had the required [id number] encounter meeting the encounter requirements on the discharge day. My findings support the fact that the patient is homebound as defined in CMS Chapter 7 Medicare Benefits Manual 30.1.1, The condition of the patient is such that there exists a normal inability to leave home and consequently, leaving home would require a considerable and taxing effort. Oxygen: NA Diet Recommendation: no restrictions on diet Valdovinos: Not applicable Activity/Weight Bearing Restrictions: as tolerated w/ walker - Labs/Radiology BMP Date: 03/22/17 CBC Date: 03/22/17 Call or Fax Lab and Imaging Results to: Dr. Donato - Follow Up Care Current Providers and Referrals: Maria Guadalupe Daley MD [Primary Care Provider] - As per Instructions Khushbu Donato MD [Medical Doctor] -
--- NOTE | 2017-03-18 18:11 | PDDCSUM ---
Discharge Summary Discharge Summary: DISCHARGE SUMMARY FOLLOW-UP ITEMS: Follow-up chemistry and CBC next Wednesday DATE OF ADMISSION: 03/13/2017 DATE OF DISCHARGE: 03/18/2017 DISCHARGE DIAGNOSES: 1. Inferior vena cava thrombus 2. Deep venous thrombosis present on admission 3. New diagnosis of metastatic adenocarcinoma of the pancreas 4. Anemia of chronic inflammatory disease 5. Atelectasis CONSULTATIONS: Oncology, Interventional Radiology PROCEDURES / IMAGING: Thrombectomy, lysis comma angioplasty by Interventional Radiology, pancreatic mass biopsy CHIEF COMPLAINT: Leg swelling and pain SUBJECTIVE: Patient reports that her pain is significantly better managed, no shortness of breath, stable when using walker PHYSICAL EXAM ON DISCHARGE: Systolic blood pressure is 120, heart rate 50, satting 95% on room air with deep inspiration, afebrile overnight faint inspiratory crackles in the bases but clear with cough, abdomen is soft nontender, right lower extremity is 1+ edematous with mild tenderness to palpation LABS ON DISCHARGE: Hemoglobin 7.8 prior to transfusion, creatinine 0.9 HOSPITAL COURSE BY PROBLEM: 1. Inferior vena cava thrombus. This is most likely state secondary to her hypercoagulable state in the setting of adenocarcinoma, resulting in lower extremity edema and requiring interventional radiology thrombectomy, lysis comma angioplasty. She was admitted to the intensive care unit following her procedure to monitor for any bleeding. She did not demonstrate any bleeding complications. The area was considered affectively treated and no stents were placed. She will require ongoing systemic anticoagulation. The patient considered using subcutaneous Lovenox but she was fearful of subcutaneous abdominal dosing and she was fearful of self administration. Consequently, this was creating significant limiting factors which could be potentially dangerous to the patient, and I subsequently recommended utilizing 1 of the oral DOAC treatment options. There is a growing body of evidence utilize these agents for malignancy associated venous thromboembolism, and this appears to be her safest option given her limitations with Lovenox administration. This was discussed with Dr. Kern prior to discharge. 2. Deep venous thrombosis. Present on admission, left lower extremity, secondary to extension from her IVC thrombus. The pain in her lower extremities secondary to edema has been improving and has been responding to oxycodone. She will continue utilizing oxycodone as needed at home. 3. Metastatic adenocarcinoma. New diagnosis of pancreatic mass, biopsied and confirmed adenocarcinoma during this hospitalization. Patient underwent palliative consultation with both of her sons and at the present time, the decision is for treatment. 4. Anemia of chronic inflammatory disease. Evidence of acute blood loss, hemoglobin level 7.8 and patient feeling somewhat fatigued with exertion. She was transfused 1 unit of blood prior to discharge. She will have a follow-up CBC next week in the Oncology office. 5. Atelectasis. Secondary to immobility, crackles clear with cough, hypoxia resolves with deep inspiration and incentive spirometer as well as activity. She has no indication for home supplemental oxygen at this time as her oxygen saturations are completely normalized when she engages in deep breathing. I have discussed this with the patient and she has elected to be discharged home without supplemental oxygen and incentive spirometer. DISCHARGE MEDICATIONS: Please see official discharge medication reconciliation sheet in chart comma Leidyrelto starter pack, oxycodone 2.5-10 mg as needed, continue all other home medications. DISCHARGE INSTRUCTIONS: Please follow up in the Oncology Clinic next week, have labs drawn next Wednesday. TIME SPENT: Greater than 30 minutes were spent on direct patient care, as well as discharge planning and preparation.
[2017-03-18 19:55] VITALS: BP 118/55; PULSE 65; TEMP 99; O2SAT 95
== END 2017-03-18 20:21 | disposition home health service (06) | DRG 294 ==
LOC: F1N 13:46 → F2N 03-15 14:27 → F3E 03-17 15:37
PROVIDERS: ADMIT Student in an Organized Health Care Education/Training Program; ATTEND Student in an Organized Health Care Education/Training Program
PROC: 0FBG4ZX Excision of Pancreas, Percutaneous Endoscopic Approach, Diagnostic (ICD-10-PCS; 2017-03-15)
PROC: 3E04017 Introduction of Other Thrombolytic into Central Vein, Open Approach (ICD-10-PCS; principal; 2017-03-16)
PROC: 30233N1 Transfusion of Nonautologous Red Blood Cells into Peripheral Vein, Percutaneous Approach (ICD-10-PCS; 2017-03-18)
DX: I82.220 Acute embolism and thrombosis of inferior vena cava (principal); I82.412 Acute embolism and thrombosis of left femoral vein; C25.1 Malignant neoplasm of body of pancreas; J98.11 Atelectasis; M17.0 Bilateral primary osteoarthritis of knee; M16.0 Bilateral primary osteoarthritis of hip; I10 Essential (primary) hypertension; E78.5 Hyperlipidemia, unspecified; D63.8 Anemia in other chronic diseases classified elsewhere; R91.1 Solitary pulmonary nodule; M81.0 Age-related osteoporosis without current pathological fracture; Z87.01 Personal history of pneumonia (recurrent); Z86.718 Personal history of other venous thrombosis and embolism; Z79.01 Long term (current) use of anticoagulants; Z87.891 Personal history of nicotine dependence; Z51.5 Encounter for palliative care
CPT/HCPCS: 85520-90; 86301-90; 97116-GP; 97161-GP; 97165-GO; A9585; C1725; C1757; C1769; C1892; C1894; G8978-GP-CI; G8979-GP-CH; G8979-GP-CI; G8980-GP-CI; G8987-GO-CI; G8988-GO-CI; J0690; J1644; J1650; J2405; J2704; J2997; J3010; P9016; Q9967